=== PATIENT | male | born 1965 | race Caucasian/White ===

== ENCOUNTER 2021-10-04 22:46 | Emergency (ER) | payer BC, SELFPAY ==
--- NOTE | ~2021-10-04 | CT_ITS ---
EXAMINATION: CT brain wo con DATE: 10/04/2021 23:19 INDICATION: Head injury. TECHNIQUE: Computed tomography (CT) of the head was performed without intravenous contrast. The mA wa s adjusted according to patient size. Iterative reconstruction technique was employed. The dose-lengt h product was 605.33 mGy-cm. COMPARISON: None FINDINGS: There is no intracranial hemorrhage, acute infarction, or abnormal intracranial mass lesion . The ventricles are normal in size. The orbits are normal. There is mild mucosal thickening in the p aranasal sinuses. There is a trace right mastoid effusion. IMPRESSION: 1. Normal brain. Reviewed, dictated and finalized at location A. IMPRESSION: 1. Normal brain.
--- NOTE | 2021-10-04 23:04 | ED.FALL ---
HPI - Fall General Chief Complaint: Fall Stated Complaint: head laceration Time Seen by Provider: 10/04/21 22:51 Source: patient Mode of arrival: ambulatory History of Present Illness HPI Narrative: 56-year-old with a history coronary artery disease status post 4 stents 5 years ago complicated by DVT on Eliquis, cardiomyopathy /CHF, status post ICD, colon cancer with colostomy / colon resection 5 years ago, CVA, had a fall at home where he hit the edge of the table. He presents to the ER with -- 2.5 cm laceration over the left forehead. Profuse bleeding from the laceration -- abrasion of his left tibia with a 3 cm hematoma no neck pain. No loss of consciousness. No headache, vomiting of focal neuro deficit. MD complaint: fall Onset (ago): hour(s) ( 1 hour ago) Fall from: standing Fall witnessed: yes, by family Place fall occurred: home Loss of consciousness: none Prolonged down time: no Symptoms prior to fall: none Context: tripped/slipped Location of injury: head and other ( left leg) Associated symptoms (after fall): denies Related Data Home Medications Medication Instructions Recorded Confirmed apixaban 5 mg tablet (Eliquis) 5 mg PO BID 02/19/19 04/19/21 blood sugar diagnostic (Accu-Chek #10 ea 02/19/19 04/19/21 Guide test strips) furosemide 20 mg tablet 20 mg PO DAILY 02/19/19 04/19/21 hydroxyzine HCl 25 mg tablet 25 mg PO QID PRN 02/19/19 04/19/21 metoprolol succinate 100 mg 150 mg PO DAILY 02/19/19 04/19/21 tablet,extended release 24 hr sacubitril 97 mg-valsartan 103 mg 1 tablet PO BID 06/25/19 04/19/21 tablet (Entresto) cephalexin 500 mg capsule 500 mg PO Q12H 04/19/21 04/19/21 cholecalciferol (vitamin D3) 25 50 mcg PO DAILY 04/19/21 04/19/21 mcg (1,000 unit) capsule Allergies Allergy/AdvReac Type Severity Reaction Status Date / Time No Known Allergies Allergy Verified 04/19/21 08:26 Review of Systems Review of Systems: All systems reviewed & are unremarkable except as noted in HPI and below Constitutional: Constitutional: Reports as per HPI and Reports no additional constitutional complaints Eyes: Eyes: Reports as per HPI and Reports no additional eye complaints ENT: Reports system reviewed and no additional complaints, except as documented and Reports as per HPI Cardiovascular: Cardiovascular: Reports as per HPI and Reports no additional cardiovascular complaints Respiratory: Respiratory: Reports as per HPI and Reports no additional respiratory complaints Gastrointestinal: Gastrointestinal: Reports as per HPI and Reports no additional gastrointestinal complaints Genitourinary: Genitourinary: Reports no additional male genitourinary complaints and Reports as per HPI Musculoskeletal: Musculoskeletal: Reports no additional musculoskeletal complaints and Reports as per HPI Integumentary/Breasts: Comments: left forehead laceration. Left shen abrasion Neurologic: Reports system reviewed and no additional complaints, except as documented and Reports as per HPI Psychiatric: Psychiatric: Reports no additional psychiatric complaints and Reports as per HPI Endocrine: Endocrine: Reports no additional endocrine complaints and Reports as per HPI Hematologic/Lymphatic: Hematologic/Lymphatic: Reports no additional hematologic/lymphatic complaints and Reports as per HPI Allergic/Immunologic: Allergic/Immunologic: Reports no additional allergic/immunologic complaints and Reports as per HPI [facility] Past Medical History Medical History Adenocarcinoma of colon 2017 Anxiety CAD in [place] artery Cardiac defibrillator in place 03/2017 Chronic congestive heart failure Depression Dyslipidemia Elevated lipids Essential (primary) hypertension History of colon cancer 2017 History of deep venous thrombosis (DVT) of distal vein of left lower extremity 10/2016 - post partial colectomy for colon cancer History of open sigmoidectomy
[2021-10-04 23:06] VITALS: BP 120/80; PULSE 80; RESP 18; TEMP 36.6; O2SAT 96
[2021-10-05 00:19] VITALS: BP 120/69; PULSE 68; RESP 16; TEMP 36.6; O2SAT 98
[2021-10-05] MEDS: LIDOCAINE HCL 1% LOCAL INJ 10 ML VIAL (00:26)
== END 2021-10-05 00:27 | disposition home or self-care (01) ==
PROVIDERS: Emergency Provider Internal Medicine Critical Care Medicine; PCP Family Medicine
DX: S01.01XA Laceration without foreign body of scalp, initial encounter (principal); S80.812A Abrasion, left lower leg, initial encounter; S09.90XA Unspecified injury of head, initial encounter; W19.XXXA Unspecified fall, initial encounter
CPT/HCPCS: 12011; 70450; 99284

== ENCOUNTER 2021-10-25 09:46 | Outpatient (CLI) | payer BC, SELFPAY ==
[2021-10-25 18:39] LABS: Basophils Percent Auto 0.4 % (0.2-1.2); Eosinophils Absolute Auto 0.1 K/mm3 (0-0.3); Eosinophils Percent Auto 1.6 % (0-4.4); Hematocrit 46.1 % (42.0-52.0); Hemoglobin 14.9 g/dL (14.0-18.0); Immature Granulocyte Absolute 0.01 K/mm3 (0.00-0.031); Immature Granulocyte Percent A 0.1 % (0-0.5); Lymphocytes Percent Auto 17.7 % (18.3-44.2); Mean Corpuscular HGB Conc 32.3 g/dl (32-36); Mean Corpuscular Hemoglobin 31.4 pg (26-34); Mean Corpuscular Volume 97.1 fl (80-100); Mean Platelet Volume 9.3 fl (7.4-10.4); Monocytes Absolute Auto 0.6 K/mm3 (0.1-0.6); Monocytes Percent Auto 7.6 % (2.6-8.5); Neutrophils Absolute Auto 5.3 K/mm3 (1.3-6.7); Neutrophils Percent Auto 72.6 % (45.5-73.1); Platelet Count Result 295 k/mm3 (150-375); Red Blood Count 4.75 M/mm3 (4.6-6.20); Red Cell Distribution Width 12.5 % (11.5-14.5); White Blood Count 7.3 K/mm3 (4.5-10.0)
[2021-10-25 19:13] LABS: Alanine Aminotransferase 19 U/L (6-50); Albumin Level 4.1 g/dL (3.5-5.1); Alkaline Phosphatase 87 U/L (38-126); Anion Gap 7 mmol/L (8-16); Aspartate Amino Transferase 54 U/L (17-59); Bilirubin,Total 0.3 mg/dL (0.2-1.3); Blood Urea Nitrogen 17 mg/dL (9-20); Calcium 9.2 mg/dL (8.4-10.2); Carbon Dioxide 28 mmol/L (22-30); Chloride 103 mmol/L (98-107); Cholesterol 105 mg/dL (0-200); Estimated Glomerular Filt Rate > 60; Glucose 168 mg/dL (65-110); HDL Direct 32 mg/dL; Potassium 4.1 mmol/L (3.4-5.0); Sodium 138 mmol/L (137-145); Triglycerides 83 mg/dL (<150)
[2021-10-25 19:19] LABS: Creatinine Urine 110.3 mg/dL
[2021-10-25 19:25] LABS: LDL Cholesterol Direct 52 mg/dL
[2021-10-25 19:30] LABS: MALB Creatinine Ratio 17.6 mg/g (0-30); Microalbumin Urine Random 19.4 mg/L (0-16.7)
[2021-10-25 19:39] LABS: Prostate Specific Antigen 0.5 ng/mL (< OR = 4.0)
[2021-10-25 19:58] LABS: Hemoglobin A1C 6.8 % (<5.7)
[2021-10-25 20:22] LABS: Vitamin D 25 Hydroxy 61.8 ng/mL
== END 2021-10-25 09:47 | disposition home or self-care (01) ==
LOC: ANHGOSHLAB 09:48
PROVIDERS: PCP Family Medicine; Visit Provider Family Medicine
DX: Z00.00 Encounter for general adult medical examination without abnormal findings (principal); E11.9 Type 2 diabetes mellitus without complications; Z12.5 Encounter for screening for malignant neoplasm of prostate; E53.8 Deficiency of other specified B group vitamins; E78.5 Hyperlipidemia, unspecified; I10 Essential (primary) hypertension; F32.9 Major depressive disorder, single episode, unspecified; I50.9 Heart failure, unspecified; F41.9 Anxiety disorder, unspecified; E55.9 Vitamin D deficiency, unspecified
CPT/HCPCS: 36415; 80053; 80061; 82043; 82306; 82607; 83036; 84153; 84443; 85025; G0103

== ENCOUNTER 2022-04-26 09:36 | Outpatient (CLI) | payer BC, SELFPAY ==
[2022-04-26 20:22] LABS: Alanine Aminotransferase 21 U/L (6-50); Albumin Level 4.3 g/dL (3.5-5.1); Alkaline Phosphatase 91 U/L (38-126); Anion Gap 6 mmol/L (8-16); Aspartate Amino Transferase 64 U/L (17-59); Bilirubin,Total 0.5 mg/dL (0.2-1.3); Blood Urea Nitrogen 22 mg/dL (9-20); Calcium 9.2 mg/dL (8.4-10.2); Carbon Dioxide 31 mmol/L (22-30); Chloride 102 mmol/L (98-107); Estimated Glomerular Filt Rate > 60; Glucose 151 mg/dL (65-110); Potassium 4.5 mmol/L (3.4-5.0); Sodium 139 mmol/L (137-145)
[2022-04-26 20:49] LABS: Hemoglobin A1C 7.2 % (<5.7)
== END 2022-04-26 09:37 | disposition home or self-care (01) ==
LOC: ANHGOSHLAB 09:37
PROVIDERS: PCP Family Medicine; Visit Provider Family Medicine
DX: E11.9 Type 2 diabetes mellitus without complications (principal); E78.5 Hyperlipidemia, unspecified; F32.9 Major depressive disorder, single episode, unspecified; I10 Essential (primary) hypertension; I50.9 Heart failure, unspecified
CPT/HCPCS: 36415; 80053; 83036

== ENCOUNTER 2022-11-01 09:07 | Outpatient (CLI) | payer BC, SELFPAY ==
[2022-11-01 11:41] LABS: Alanine Aminotransferase 18 U/L (6-50); Alkaline Phosphatase 69 U/L (38-126); Anion Gap 3 mmol/L (8-16); Aspartate Amino Transferase 63 U/L (17-59); Bilirubin,Total 0.6 mg/dL (0.2-1.3); Blood Urea Nitrogen 26 mg/dL (9-20); Calcium 9.2 mg/dL (8.4-10.2); Carbon Dioxide 33 mmol/L (22-30); Chloride 101 mmol/L (98-107); Cholesterol 104 mg/dL (0-200); Estimated Glomerular Filt Rate > 60; Glucose 145 mg/dL (65-110); HDL Direct 30 mg/dL; Magnesium 1.9 mg/dL (1.6-2.3); Potassium 4.8 mmol/L (3.4-5.0); Sodium 137 mmol/L (137-145); Triglycerides 91 mg/dL (<150)
[2022-11-01 11:43] LABS: Basophils Percent Auto 0.6 % (0.2-1.2); Eosinophils Absolute Auto 0.1 K/mm3 (0-0.3); Immature Granulocyte Absolute 0.02 K/mm3 (0.00-0.031); Immature Granulocyte Percent A 0.3 % (0-0.5); Lymphocytes Absolute Auto 1.51 K/mm3 (0.9-3.2); Lymphocytes Percent Auto 22.1 % (18.3-44.2); Mean Corpuscular HGB Conc 32.6 g/dl (32-36); Mean Corpuscular Hemoglobin 31.9 pg (26-34); Mean Corpuscular Volume 97.9 fl (80-100); Mean Platelet Volume 9.5 fl (7.4-10.4); Monocytes Absolute Auto 0.5 K/mm3 (0.1-0.6); Monocytes Percent Auto 7.9 % (2.6-8.5); Neutrophils Absolute Auto 4.6 K/mm3 (1.3-6.7); Neutrophils Percent Auto 67.1 % (45.5-73.1); Platelet Count Result 278 k/mm3 (150-375); Red Cell Distribution Width 12.3 % (11.5-14.5); White Blood Count 6.8 K/mm3 (4.5-10.0)
[2022-11-01 11:52] LABS: LDL Cholesterol Direct 56 mg/dL
[2022-11-01 12:26] LABS: Creatinine Urine 134.2 mg/dL
[2022-11-01 12:28] LABS: MALB Creatinine Ratio 5.9 mg/g (0-30); Microalbumin Urine Random 7.9 mg/L (0-16.7)
[2022-11-01 13:21] LABS: Hemoglobin A1C 6.7 % (<5.7)
[2022-11-01 13:28] LABS: Vitamin D 25 Hydroxy 65.8 ng/mL
[2022-11-01 17:36] LABS: Prostate Specific Antigen 0.4 ng/mL (< OR = 4.0)
== END 2022-11-01 09:08 | disposition home or self-care (01) ==
LOC: ANHGOSHLAB 09:10
PROVIDERS: PCP Family Medicine; Visit Provider Family Medicine
DX: Z00.00 Encounter for general adult medical examination without abnormal findings (principal); E53.8 Deficiency of other specified B group vitamins; I50.9 Heart failure, unspecified; I10 Essential (primary) hypertension; E11.9 Type 2 diabetes mellitus without complications; E78.5 Hyperlipidemia, unspecified; Z12.5 Encounter for screening for malignant neoplasm of prostate; G25.81 Restless legs syndrome; E55.9 Vitamin D deficiency, unspecified
CPT/HCPCS: 36415; 80053; 80061; 82043; 82306; 82607; 83036; 83735; 84153; 84443; 85025; G0103

== ENCOUNTER 2023-05-07 12:57 | Outpatient (CLI) | payer BC, SELFPAY ==
[2023-05-07 14:03] LABS: Alanine Aminotransferase 13 U/L (6-50); Alkaline Phosphatase 72 U/L (38-126); Anion Gap 4 mmol/L (8-16); Aspartate Amino Transferase 21 U/L (17-59); Bilirubin,Total 0.5 mg/dL (0.2-1.3); Blood Urea Nitrogen 21 mg/dL (9-20); Calcium 9.3 mg/dL (8.4-10.2); Carbon Dioxide 31 mmol/L (22-30); Chloride 102 mmol/L (98-107); Estimated Glomerular Filt Rate > 60; Glucose 131 mg/dL (65-110); Potassium 4.1 mmol/L (3.4-5.0); Sodium 137 mmol/L (137-145)
[2023-05-07 22:35] LABS: Hemoglobin A1C 7.5 % (<5.7)
== END 2023-05-07 12:58 | disposition home or self-care (01) ==
LOC: ANHLAB 12:59
PROVIDERS: PCP Family Medicine; Visit Provider Family Medicine
DX: E11.9 Type 2 diabetes mellitus without complications (principal); I10 Essential (primary) hypertension
CPT/HCPCS: 36415; 80053; 83036

== ENCOUNTER 2023-11-14 09:29 | Outpatient (CLI) | payer BC, SELFPAY ==
[2023-11-14 19:01] LABS: Basophils Absolute Auto 0.1 K/mm3 (0.0-0.1); Basophils Percent Auto 0.7 % (0.2-1.2); Eosinophils Absolute Auto 0.2 K/mm3 (0-0.3); Eosinophils Percent Auto 1.7 % (0-4.4); Hematocrit 46.2 % (42.0-52.0); Hemoglobin 15.5 g/dL (14.0-18.0); Immature Granulocyte Absolute 0.02 K/mm3 (0.00-0.031); Immature Granulocyte Percent A 0.2 % (0-0.5); Lymphocytes Absolute Auto 1.51 K/mm3 (0.9-3.2); Lymphocytes Percent Auto 17.2 % (18.3-44.2); Mean Corpuscular HGB Conc 33.5 g/dl (32-36); Mean Corpuscular Hemoglobin 32.8 pg (26-34); Mean Corpuscular Volume 97.7 fl (80-100); Mean Platelet Volume 9.5 fl (7.4-10.4); Monocytes Absolute Auto 0.7 K/mm3 (0.1-0.6); Monocytes Percent Auto 7.9 % (2.6-8.5); Neutrophils Absolute Auto 6.4 K/mm3 (1.3-6.7); Neutrophils Percent Auto 72.3 % (45.5-73.1); Platelet Count Result 284 k/mm3 (150-375); Red Blood Count 4.73 M/mm3 (4.6-6.20); Red Cell Distribution Width 12.4 % (11.5-14.5); White Blood Count 8.8 K/mm3 (4.5-10.0)
[2023-11-14 19:41] LABS: Microalbumin Urine Random 6.5 mg/L (0-16.7)
[2023-11-14 19:42] LABS: Alanine Aminotransferase 15 U/L (6-50); Albumin Level 4.2 g/dL (3.5-5.1); Alkaline Phosphatase 68 U/L (38-126); Anion Gap 8 mmol/L (4-12); Aspartate Amino Transferase 44 U/L (17-59); Bilirubin,Total 0.6 mg/dL (0.2-1.3); Blood Urea Nitrogen 19 mg/dL (9-20); Calcium 9.3 mg/dL (8.4-10.2); Carbon Dioxide 30 mmol/L (22-30); Chloride 99 mmol/L (98-107); Cholesterol 101 mg/dL (0-200); Estimated Glomerular Filt Rate > 60; Glucose 148 mg/dL (65-110); HDL Direct 32 mg/dL; Potassium 4.1 mmol/L (3.4-5.0); Sodium 137 mmol/L (137-145); Triglycerides 94 mg/dL (<150)
[2023-11-14 19:53] LABS: LDL Cholesterol Direct 42 mg/dL
[2023-11-14 20:10] LABS: Prostate Specific Antigen 0.5 ng/mL (< OR = 4.0)
[2023-11-14 21:00] LABS: Hemoglobin A1C 7.1 % (<5.7)
[2023-11-14 21:19] LABS: Vitamin D 25 Hydroxy 64.4 ng/mL
== END 2023-11-14 09:30 | disposition home or self-care (01) ==
LOC: ANHGOSHLAB 09:30
PROVIDERS: PCP Family Medicine; Visit Provider Family Medicine
DX: Z00.00 Encounter for general adult medical examination without abnormal findings (principal); I10 Essential (primary) hypertension; E78.5 Hyperlipidemia, unspecified; E11.9 Type 2 diabetes mellitus without complications; E55.9 Vitamin D deficiency, unspecified; F32.9 Major depressive disorder, single episode, unspecified; F41.9 Anxiety disorder, unspecified; E53.8 Deficiency of other specified B group vitamins; G25.81 Restless legs syndrome; Z12.5 Encounter for screening for malignant neoplasm of prostate
CPT/HCPCS: 36415; 80053; 80061; 82043; 82306; 82607; 82728; 83036; 84153; 84443; 85025; G0103

== ENCOUNTER 2024-05-15 09:05 | Outpatient (CLI) | payer BC, SELFPAY ==
--- OUTSIDE RECORDS SUMMARY | 2024-05-15 09:19 | XMS_ITS | Encounter Summary ---
Author Organization [facility] Address [address] [place] [address] Phone Care Team Providers Care Piece Work Checker Name Role Phone Jerri Velez MD Primary Care Provider Be Soler MD Primary Care Provider + [phone] Jerri Velez MD Primary Care Provider Be Soler MD Primary Care Provider + [phone] Jerri Velez MD Primary Care Provider Carloz Ace MD Unavailable [phone] Jonathan Rosario MD Unavailable [phone] Catalina Tan MD PhD Unavailable [phone] Derek Mora MD Unavailable [phone] Be Soler MD Primary Care Provider + [phone] Jerri Velez MD Primary Care Provider Fanta Chauhan RN Unavailable [phone] Jerri Velez MD Unavailable + [phone] Renetta Duenas RN Unavailable [phone] Jerri Velez MD Primary Care Provider Encounter Details Date Type Department Care Team (Late st Contact Info) Description 04/04/2017 Orders Only [facility] Provider, MD Antonio [address] [place] [id number] Social History Tobacco Use Types Packs/Day Years Used Date Smoking Tobacco: Never Assessed Sex and Gender Information Value Date Recorded Sex Assigned at Not on file Legal Sex Male 6:37 PM CDT Gender Identity Not on file Sexual Orientation Not on file documented as of this encounter Plan of Treatment Not on file documented as of this encounter Procedures Procedure Name Priority Date/Time Associated Diagnosis Comments CARDIOLOGY REPORT 04/04/2017 documented in this encounter Results * CARDIOLOGY REPORT (04/04/2017) Anatomical Region Laterality Modality Other Narrative 04/04/2017 Ordered by an unspecified provider. Historical Provider [facility] ALEJANDRO TOBAR Final Result documented in this encounter Visit Diagnoses Not on filedocumented in this encounter Care Teams Piece Work Checker Relationship Specialty Start Date End Date Jerri Velez MD PCP - General 04/04/17 06/08/17 [place] [address] PCP - General 06/09/17 06/12/17 Jerri Velez MD PCP - General 06/13/17 06/19/17 Be Soler MD [address] [place] [address] PCP - General 06/20/17 07/11/17 Jerri Velez MD PCP - General 07/12/17 08/09/17 [place] [address] PCP - General 08/10/17 10/16/17 Jerri Velez MD PCP - General Family Practice 10/17/17 05/29/23 Jerri Velez MD [address] [place] [address] PCP - [facility] Family Practice 05/30/23 Carloz Ace MD [address] [facility] [address] [place] [address] Medical Oncologist/Hematologis t Medical Oncology 08/09/17 Jonathan Rosario MD [address] [facility] [address] [place] [address] Referring Physician Colon and Rectal Surgery 08/09/17 Catalina Tan MD PhD [address] [facility] [address] [place] [address] Surgeon Transplant 08/09/17 Derek Mora MD [address] [facility] [address] [place] [address] Consulting Physician Transplant 08/09/17 Fanta Chauhan, RN [address] [facility] [address] [place] [address] Heart Failure Coordinator Neonatal Doctor 10/31/17 Jerri Velez MD Referring Physician Family Practice 12/18/18 Renetta Duenas, RN Registered Nurse Neonatal Doctor 08/07/19 documented as of this encounter
--- OUTSIDE RECORDS SUMMARY | 2024-05-15 09:19 | XMS_ITS | Encounter Summary ---
Author Organization [facility] Address [address] [place] [address] Care Team Providers Care Documentation Lead Name Role Phone Carloz Ace MD Unavailable [phone] Jonathan Rosario MD Unavailable [phone] Catalina Tan MD PhD Unavailable [phone] Derek Mora MD Unavailable [phone] Jerri Velez MD Primary Care Provider Fanta Chauhan RN Unavailable [phone] Jerri Velez MD Unavailable [phone] Renetta Duenas RN Unavailable [phone] Jerri Velez MD Primary Care Provider Encounter Details Date Type Department Care Team (Late st Contact Info) Description 08/16/2021 Telephone [facility] Transplant Heart [address] [facility] [address] [phone] [place] [address] Milli Fang Social History Tobacco Use Types Packs/Day Years Used Date Smoking Tobacco: Never Smokeless Tobacco: Current Chew Alcohol Use Standard Drinks/Week Comments No 0 (1 standard drink = 0.6 oz pur e alcohol) AUDIT-C Answer Date Recorded Q1: How often do you have a drink containing alc ohol? Never 05/10/2021 Average Number of Drinks Not on file 022 Frequency of Binge Drinking Not on file 04/13 Sex and Gender Information Value Date Recorded Sex Assigned at Not on file Legal Sex Male 6:37 PM CDT Gender Identity Not on file Sexual Orientation Not on file documented as of this encounter Plan of Treatment Not on file documented as of this encounter Visit Diagnoses Not on filedocumented in this encounter Care Teams Documentation Lead Relationship Specialty Start Date End Date Jerri Velez MD [address] [address] PCP - General Family Practice 10/17/17 05/29/23 Jerri Velez MD [address] [place] [address] PCP - General Family Practice 05/30/23 [place] [address] [place] [address] Medical Oncologist/Textile Pin Worker Medical Oncology 08/09/17 Jonathan Rosario MD [address] [address] Referring Physician Colon and Rectal Surgery 08/09/17 Catalina Tan [place] PhD [address] [place] [address] Surgeon Transplant 08/09/17 Derek Mora MD [address] [place] [address] Consulting Physician Transplant 08/09/17 Fanta Chauhan RN [address] [facility] [address] [place] [address] Heart Failure Coordinator Airline Reservationist 10/31/17 Jerri Velez MD [address] [facility] [address] [place] [address] Referring Physician Family Practice 12/18/18 Renetta Duenas, RN Registered Nurse Airline Reservationist 08/07/19 documented as of this encounter
--- OUTSIDE RECORDS SUMMARY | 2024-05-15 09:19 | XMS_ITS | Clinical Summary ---
Author Organization [facility] Address [id number] [place] [address] Care Team Providers Care Soda Drier Feeder Name Role Phone Unavailable Primary Care Provider Unavailabl e Social History Tobacco Use Types Packs/Day Years Used Date Smoking Tobacco: Never Assessed Sex and Gender Information Value Date Recorded Sex Assigned at Not on file Legal Sex Male 7:31 AM CDT Gender Identity Not on file Sexual Orientation Not on file Plan of Treatment Health Maintenance Due Date Last Done Comments Colorectal Cancer Screening Colonoscopy (10 Years) 1963 Annual Physical 07/05/1966 Hepatitis C 07/05/1981 DTaP, Tdap and Td Vaccines ( 1 - Tdap) 07/05/1982 Zoster Vaccines (1 of 2) 07/05/2013 COVID-19 Vaccine (2023-2 5 season) 2023 Influenza Adult (#1) 2023 RSV Immunization or 60+ Years (1 - 1-dose 75+ series) 07/05/2038 Meningococcal B Vaccine Aged Out No l onger eligible based on patient's age to complete this topic Meningococcal Vaccine Aged Out No pretty bud eligible based on patient's age to complete this topic Pneumococcal Vaccine: Pediat rics (0 to 5 Years) and At-Risk Patients (6 to 64 Years) Aged Out No longer eligible b ased on patient's age to complete this topic RSV Immunizations Under 20 Months Aged Out No longer eligible based on patient's age to complete this topic Insurance [place] [employer]
--- OUTSIDE RECORDS SUMMARY | 2024-05-15 09:19 | XMS_ITS | Clinical Summary ---
Author Organization [facility] Address [address] [place] [id number] Care Team Providers Care Oyster Culturist Name Role Phone Carloz Ace MD Unavailable Jonathan Rosario MD Unavailable [phone] Catalina Tan MD PhD Unavailable [phone] Derek Mora MD Unavailable [phone] Fanta Chauhan RN Unavailable Jerri Velez MD Unavailable Renetta Duenas RN Unavailable Jerri Velez MD Primary Care Provider Allergies No known active allergies Medications spironolactone (ALDACTONE) 25 mg tablet daily. 12/05/19 17 Active atorvastatin (LIPITOR) 80 mg tablet TAKE 1 TABLET AT BEDTIME. Active hydrOXYzine (ATARAX) 25 mg tablet TAKE 1 TABLET 4 TIMES DAILY NEEDED. Active dapagliflozin (FARXIGA) 10 mg tablet 1 tablet (10 mg total) daily Active cyanocobalamin -salcaprozat sod 1,000-100 mcg-mg tablet Take by mouth Ac tive glipiZIDE XL (GLUCOTROL XL) 10 mg 24 hr tablet Take 1 tablet (10 mg total) by mouth daily 2 tablets 07/27/19 23 Active metFORMIN XR (GLUCOPHAGE XR) 500 mg 24 hr tablet Take 4 tablets (2,000 mg total) by mouth daily with breakfast 08/03/19 23 Active rOPINIRole (REQUIP) 2 mg tablet Take 1 tablet (2 mg total) by mouth nightly 08/17/19 23 Active Ozempic 1 mg/dose (4 mg/3 mL) pen injector injection Inject 1 mg under the skin once a week 08/03/19 23 Active sod sulf-pot chloride-mag sulf 1.479-0.188- 0.225 gram tablet Please follow the instructions provided by your [facility] GI office. For any questions call [phone]. 24 tablet 03/27/19 24 Active Entresto 97-103 mg tablet TAKE ONE TABLET BY MOUTH TWICE A DAY 60 tablet 11 04/18/19 24 Active clopidogreL (PLAVIX) 75 mg tablet TAKE ONE TABLET BY MOUTH DAILY 90 tablet 3 05/30/19 24 Active sertraline (ZOLOFT) 25 mg tablet Take 1 tablet (25 mg total) by mouth daily 07/31/19 24 Active furosemide (LASIX) 20 mg tablet TAKE ONE TABLET BY MOUTH DAILY 90 tablet 3 02/20/19 25 Active Eliquis 5 mg tablet TAKE ONE TABLET BY MOUTH TWICE A DAY 60 tablet 11 03/19/19 25 Active sotaloL (BETAPACE) 120 mg tablet TAKE ONE TABLET BY MOUTH TWICE A DAY 180 tablet 04/06/19 25 Active metoprolol XL (TOPROL-XL) 100 mg 24 hr tablet TAKE ONE AND A HALF TABLETS BY MOUTH DAILY 135 tablet 3 05/02/19 25 Active metoprolol XL (TOPROL-XL) 100 mg 24 hr tablet TAKE ONE AND A HALF TABLETS BY MOUTH DAILY 135 tablet 3 05/08/19 24 025 Discontinued Active Problems Problem Noted Date Diagnosed Date Encounter for colonoscopy du e to history of adenomatous colonic polyps 03/27/2023 VT (ventricular tachycardia) 11/28/2021 Assessment & Plan (12/01/2021 10:28 AM CDT): History of ischemic cardiomyopathy s/p medtronic FINANCE ASSOCIATE-D implanted initially for primary prevention therapy. He has subsequently had two appropriate shocks for VT/VF, first in 2018 and most recently again in February of this year. He was seen in follow up with EP November 22 2021 and given recurrent ICD shocks was recommended elective admission for sotalol load. -Sotalol 80mg BID started on evening of 11/28, increased to 120mg BID on evening of11/29 -pt tolerating sotalol well and 6th dose will be this am -anticipate d/c home if QT remains stable post dose -Continuous uninterrupted telemetry monitoring while in house -follow-up in EP clinic in one month post discharge Assessment & Plan (11/30/2021 12:53 PM CDT): History of ischemic cardiomyopathy s/p medtronic FINANCE ASSOCIATE-D implanted initially for primary prevention therapy. He has subsequently had two appropriate shocks for VT/VF, first in 2019 and most recently again in February of this year. He was seen in follow up with EP November 22 2021 and given recurrent ICD shocks was recommended elective admission for sotalol load. -Sotalol 80mg BID started on evening of 11/28, increased to 120mg BID on evening of11/29-patient tolerating and EKG remains stable -Check EKG 2 hours following each dose of sotalol to monitor QTc interval -Continuous uninterrupted telemetry monitoring Assessment & Plan (11/29/2021 11:18 AM CDT): History of ischemic cardiomyopathy s/p medtronic FINANCE ASSOCIATE-D implanted initially for primary prevention therapy. He has subsequently had two appropriate shocks for VT/VF, first in 2019 and most recently again in February of this year. He was seen in follow up with EP November 22 2021 and given recurrent ICD shocks was recommended elective admission for sotalol load. - Increase sotalol to 120mg BID with tonights dose - Continuous telemetry monitoring - EKGs following sotalol dose; EKG today paced QTc 476 VF (ventricular fibrillation) 02/20/2019 Chronic systolic (congestive) heart failure 06/2018 Type 2 diabetes mellitus wit hout complication, without long-term current use of insulin 03/05/2018 Essential hypertension 03/05/2018 Hemiparesis due to old stroke 03/05/2018 CAD (coronary artery disease) 12/05/2017 Overview (12/05/2017): Cardiac catheterization at [facility] in [place] showed an 80% distal left main coronary stenosis; 100% chronic total occlusion of the LAD after the first diagonal; and occluded second diagonal, filling retrograde; 80% to 90% distal left circumflex coronary disease; 50% disease at the RCA. SPECT myocardial viability scan 10/21/2016 showed a small apical LV infarct with all other left ventricular myocardial segments showing normal myocardium. Status post PCI 11/06/[address] Echols with Impella assistance; angioplasty of the distal left circumflex coronary artery with placement of a 2.75 x 38 mm Synergy drug-eluting stent, PCI to the LAD with a 2.25 x 38 mm overlapping with 3.0 x 32 mm Synergy drug-eluting stents, and 4.0 mm x 12 mm Synergy drug-eluting stent placed to the left main coronary artery Assessment & Plan (11/30/2021 12:55 PM CDT): History of complex PCI in 2016 with successful percutaneous coronary intervention of distal circumflex, chronic total occlusion of left anterior descending, and distal left main -Continue home plavix, atorvastatin, metoprolol Assessment & Plan (11/29/2021 11:19 AM CDT): History of complex PCI in 2016 with successful percutaneous coronary intervention of distal circumflex, chronic total occlusion of left anterior descending, and distal left main - Continue home plavix, atorvastatin 80mg, metoprolol Cardiomyopathy, ischemic 12/05/2017 Overview (09/02/2022): TTE before hospital discharge on 11/14/2016 showed an LVEF of 16%. TTE 02/2017 = 20% S/p CRTD 03/2017 TTE June 13 LVEF 30% with large apical akinetic segmen TTE July 2019 LVEF ~ 30% with apical akinesis - foreshortened images on 2D TTE July 2020 LVEF 30%, LVIDD 5.4 cm TTE August 2022 LVEF 25-30%, LVIDD 6 cm Assessment & Plan (12/01/2021 10:29 AM CDT): Chronic systolic/diastolic HFrEF. History of cardiogenic shock and impella assisted angioplasty of the distal left circumflex, LAD, and LM. LVEF as low as 16% in past, now with recovery to LVEF 30% on most recent echo from 2020. Follows with Dr. Mora. -Continue home GDMT including: high dose entresto, metoprolol 150 XL, farxiga 10mg, and spironolactone 25 daily -Currently euvolemic on exam and well compensated -Accurate I&O, monitor on telemetry, daily standing weights Assessment & Plan (11/30/2021 12:55 PM CDT): Chronic systolic/diastolic HFrEF. History of cardiogenic shock and impella assisted angioplasty of the distal left circumflex, LAD, and LM. LVEF as low as 16% in past, now with recovery to LVEF 30% on most recent echo from 2020. Follows with Dr. Mora. -Continue home GDMT including: high dose entresto, metoprolol 150 XL, farxiga 10mg, and spironolactone 25 daily -Currently euvolemic on exam and well compensated -Accurate I&O, monitor on telemetry, daily standing weights Assessment & Plan (11/29/2021 9:16 AM CDT): Chronic systolic/diastolic HFrEF. History of cardiogenic shock and impella assisted angioplasty of the distal left circumflex, LAD, and LM. LVEF as low as 16% in past, now with recovery to LVEF 30% on most recent echo from 2020. Follows with Dr. Mora. - Continue home GDMT including high dose entresto, metoprolol 150 XL, farxiga 10mg, and spironolactone 25 daily - Currently euvolemic and well compensated - Accurate I&O, monitor on telemetry, daily weights Ischemic stroke ([facility]) 12/05/2017 Overview (12/05/2017): Ischemic stroke with right eye gaze palsy and left upper and lower extremity weakness with MRI showing [id number] infarcts within the right cerebral peduncle and left occipital subcortical white matter and a punctate microhemorrhage in the right side of the body of the corpus callosum. Assessment & Plan (12/01/2021 10:29 AM CDT): History of ischemic stroke in 2018, currently without residual deficits Assessment & Plan (11/30/2021 12:54 PM CDT): History of ischemic stroke in 2018, currently without residual deficits Assessment & Plan (11/28/2021 8:54 PM CDT): History of ischemic stroke in 2018, currently without residual deficits DVT (deep venous thrombosis) ([facility]) 8 Overview (12/05/2017): -Deep venous thrombosis of the left lower extremity, showing acute DVT in the left common femoral, posterior tibial, and soleal veins on 11/29/2016. -received an IVC filter on 12/01/2016 followed by apixaban, with subsequent IVC filter removal. Assessment & Plan (12/01/2021 10:27 AM CDT): Deep venous thrombosis of the left lower extremity, showing acute DVT in the left common femoral, posterior tibial, and soleal veins on 11/29/2016. -Received an IVC filter on 12/01/2016 followed by Eliquis, with subsequent IVC filter removal -Continue Eliquis 5mg BID Assessment & Plan (11/30/2021 12:54 PM CDT): Deep venous thrombosis of the left lower extremity, showing acute DVT in the left common femoral, posterior tibial, and soleal veins on 11/29/2016. -Received an IVC filter on 12/01/2016 followed by Eliquis, with subsequent IVC filter removal -Continue Eliquis 5mg BID Assessment & Plan (11/29/2021 9:14 AM CDT): Deep venous thrombosis of the left lower extremity, showing acute DVT in the left common femoral, posterior tibial, and soleal veins on 11/29/2016. - Received an IVC filter on 12/01/2016 followed by apixaban, with subsequent IVC filter removal - Continue eliquis Cardiac resynchronization th erapy defibrillator (FINANCE ASSOCIATE-D) in place 12/05/2017 Overview (12/05/2017): Status post FINANCE ASSOCIATE-D implanted 04/03/[address] Nitin Fabian. Device is a Medtronic Amplia MRI compatible device. Malignant neoplasm of sigmoid colon (CMS/HCC) Cancer Staging:Pathologic stage from 10/31/2016:Stage IIA(pT3, pN0, cM0) - Signed by Ciara Gonzalez NP on 07/03/2023 Overview (12/05/2017): Came to clinical attention with hematochezia in the setting of therapeutic anticoagulation. Underwent sigmoid colon resection with end-colostomy, with an exploratory laparotomy on 10/31/[address] Rosario Pathology shows moderately to poorly differentiated adenocarcinoma with a tumor 2.3 cm in greatest dimension, invading through the muscularis propria with no lymphovascular or perineural invasion, and proximal and distal resection margins with no evidence of malignancy and 0 of 13 lymph nodes with metastasis, thus, T3N0M0, stage IIA colon cancer. - Followed by oncology, and currently undergoing surveillance given multiple comorbidities and stage II status. - Scan on 08/10/2017 was without evidence of disease recurrence. He is due for a colonoscopy on 10/2017. Assessment & Plan (12/01/2021 10:27 AM CDT): -Followed by oncology, and currently undergoing surveillance given multiple comorbidities and stage II status Assessment & Plan (11/30/2021 12:54 PM CDT): -Followed by oncology, and currently undergoing surveillance given multiple comorbidities and stage II status Assessment & Plan (11/28/2021 8:54 PM CDT): - Followed by oncology, and currently undergoing surveillance given multiple comorbidities and stage II status. Resolved Problems Problem Noted Date Diagnosed Date Resolved Date KRISTA (acute kidney injury) 12/05/2017 Overview (12/05/2017): Initial creatinine on transfer to [facility] was 1.66; this jerome to a peak of 3.09 and ultimately normalized Encounters Date Type Department Care Team Description 04/10/2024 8:00 AM OIL WELL DRILLING MANAGER Ancillary Procedure [facility] [address] [address] Cardiomyopathy, ischemic 03/11/2024 Orders Only [facility] [address] [facility] [address] [place] [phone] Johnathon Fabian MD PhD 03/06/2024 8:00 AM OIL WELL DRILLING MANAGER Ancillary Procedure [facility] [address] [place] [address] Cardiomyopathy, ischemic from Last 3 Months Immunizations Immunization Administration Dates Next Due Hep A, Adult 10/14/1999,03/08/1999 Influenza, Quadrivalent, Aria l Culture-based MDCK, Preservative Free, Antibiotic Free, Intramuscular 12/18/2018 Influenza, Quadrivalent, Spl it, Preservative Free, Intramuscular 12/01/2021 Influenza, Unspecified 10/13/2016 Td, adsorbed 03/08/1999 Tdap 04/05/2010 Surgical History Surgery Date Site/Laterality Comments OTHER SURGICAL HISTORY 11/13/2016 1. Open repair of the left axillary artery. 2. Removal of intra-aortic balloon pump from the left axillary artery. OTHER SURGICAL HISTORY 11/09/2016 1. Impella interrogation. 2. Impella explant. 3. Closure of the axillary wound. 4. Insertion of left axillary 40 mL intra-aortic balloon pump through 8- Pashto sheath. 5. Use of fluoroscopy for intra-aortic balloon pump insertion. 6. CALEB guidance and repositioning of intra-aortic balloon pump and repositioning of balloon pump. OTHER SURGICAL HISTORY 10/17/2016 1. Removal of the left femoral Impella CP. 2. Extensive repair of the left femoral artery. 3. New implant of the Impella 5 through the right axillary artery, 8 mm Dacron graft sewn to the axillary artery in end-to-side fashion. 4. Initial interrogation of the Impella 5 through the right axillary arterial graft. 5. Transesophageal echocardiogram. CORONARY ANGIOPLASTY WITH STENT PLACEMENT 02/13/2016 - 02/11/2017 x4 EXPLORATORY LAPAROTOMY 10/31/2016 sigmoid resection with end colostomy, transesophageal echo COLONOSCOPY Medical History Medical History Date Comments Colorectal cancer (HCC) 10/20/2016 Heart attack (HCC) 10/17/2016 cardiogenic s hock Diabetes (HCC) 1996 Stroke (cerebrum) (HCC) 11/05/2016 CHF (congestive heart failure) (HCC) 03/2017 s/p biventricular Medtronic Quad FINANCE ASSOCIATE-D DVT (deep venous thrombosis) (HCC) 11/2016 s/p IVC filter Type 2 diabetes mellitus (HCC) Colon polyp Pacemaker 2017 Family History Medical History Relation Name Comments Colon cancer Maternal Grandfather Colon cancer Mother Family history of colon cancer - (Added by TW Conv)/Family history of colon cancer - (Added by TW Conv) Hypertension Mother Family history of hypertension - (Added by TW Conv)/Family history of hypertension - (Added by TW Conv)/Family history of hypertension - (Added by TW Conv) Relation Name Status Comments Maternal Grandfather Mother Social History Tobacco Use Types Packs/Day Years Used Date Smoking Tobacco: Never Smokeless Tobacco: Current Chew Tobacco Cessation:Ready to Q uit: Not Asked; Counseling Given: Not Answered Alcohol Use Standard Drinks/Week Comments No 0 (1 standard drink = 0.6 oz pur e alcohol) AUDIT-C Answer Date Recorded Q1: How often do you have a drink containing alcohol? Never 04/12/2023 Q2: How many drinks containi ng alcohol do you have on a typical day when you are drinking? Patient does not drink Q3: How often do you have si x or more drinks on one occasion? Never 04/12/2023 Personal Safety Answer Date Recorded Have you ever been in or are you currently in a harmful physical or emotional relationship or is someone making you feel afraid or unsafe? Denies 04/12/2023 Sex and Gender Information Value Date Recorded Sex Assigned at Not on file Legal Sex Male 6:37 PM CDT Gender Identity Not on file Sexual Orientation Not on file Obstetrics History Last Filed Vital Signs Vital Sign Reading Time Taken Comments Blood Pressure 117/71 11/27/2023 10:18 AM CDT Pulse 73 11/27/2023 10:18 AM CDT Temperature 36.5 C (97.7 F) 07/16/2023 9:30 AM CDT Respiratory Rate 20 07/16/2023 9:30 AM CDT Oxygen Saturation 99% 11/27/2023 10:18 AM CDT Inhaled Oxygen Concentration - - Weight 84.8 kg (187 lb) 11/27/2023 10:18 AM CDT Height 175.3 cm (5' 9 ) 11/27/2023 10:18 AM CDT Body Mass Index 27.62 11/27/2023 10:18 AM CDT Plan of Treatment Health Maintenance Due Date Last Done Comments Albumin Creatinine Ratio, Urine 1965 Depression Screening 1965 Hepatitis C Screening 1965 Prostate Cancer Screening-PSA 1965 Dilated Eye Exam 1965 Foot Exam 1965 Hepatitis B Screening 07/05/1981 Regular Well Visit/Exam 18-64 07/05/1981 Pneumococcal vaccine <65 (1 of 2 - PCV) 07/05/1982 Zoster Vaccine (1 of 2) 07/05/2013 DTaP/Tdap/Td Vaccine (2 - Td or Tdap) 04/05/2020 04/05/2010, 03/08/1999 Hemoglobin A1C 05/30/2022 11/29/2021, 03/15, 11/09/2016 Lipid Panel 11/28/2022 11/28/2021, 10/17/2016 eGFR 07/15/2024 07/16/2023, 07/13, 07/24/2022, Additional history exists Influenza Vaccine (Season Ended) 2024 12/01/2021, 12/18/2018, 10/13/2016 Colon Cancer Screening-Colonoscopy 04/11/2033 04/12/2023, 05/11/2021, 10/24/2018, Additional history exists Colon Cancer Screening-CT Colonography Discontinued 04/12/2023, 05/11/2021, 10/24/2018, Additional history exists Colon Cancer Screening-DNA Stool Discontinued 04/12/2023, 05/11/2021, 10/24/2018, Additional history exists Colon Cancer Screening-FIT Discontinued , 05/11/2021, 10/24/2018, Additional history exists Colon Cancer Screening-Sigmoidoscopy Discontinued 04/12/2023, 05/11/2021, 10/24/2018, Additional history exists Medical Devices Implanted Type Area Paper Cup Machine Tender Device Identifier Shelf Expiration Date Model / Serial / Lot Icd-04/03/2017 Implanted:04/03 by Johnathon Fabian MD PhD (Quantity not on file) ICD Chest Medtronic Cardiac Rhythm Mgmt [id number] AMPILA / [id number] / Lead (Lv)-04/03/2017 Implanted:04/03 by Johnathon Fabian MD PhD (Quantity not on file) Lead Heart Medtronic Cardiac Rhythm Mgmt 4598/78 / [id number] / Lead (Ra)-04/03/2017 Implanted:04/03 by Johnathon Fabian MD PhD (Quantity not on file) Lead Heart Medtronic Cardiac Rhythm Mgmt 5076/52 / [id number] / Lead (Rv)-04/03/2017 Implanted:04/03 by Johnathon Fabian MD PhD (Quantity not on file) Lead Heart Medtronic Cardiac Rhythm Mgmt [id number]/55 / [id number] / Procedures Procedure Name Priority Date/Time Associated Diagnosis Comments HEART FAILURE DEVICE CHECK - REMOTE Routine 04/10/2024 12:32 PM OIL WELL DRILLING MANAGER Cardiomyopathy, ischemic DEVICE CHECK - REMOTE Routine 03/11/2024 6:38 AM OIL WELL DRILLING MANAGER HEART FAILURE DEVICE CHECK - REMOTE Routine 03/06/2024 2:53 PM OIL WELL DRILLING MANAGER Cardiomyopathy, ischemic EGFR Routine 07/16/2023 9:27 AM CDT Malignant neoplasm of sigmoid colon (HCC) COLONOSCOPY 04/12/2023 10:15 AM OIL WELL DRILLING MANAGER HEMOGLOBIN A1C Timed 11/29/2021 5:56 AM CDT LIPID PANEL Routine 11/28/2021 9:38 PM CDT from Last 3 Months or Most Recently Relevant to Health Maintenance Results * Heart Failure Device Check - Remote (04/10/2024 12:32 PM OIL WELL DRILLING MANAGER) Anatomical Region Laterality Modality Other Narrative 04/11/2024 11:25 AM OIL WELL DRILLING MANAGER Cory Conroy [id number] 1965 Date of Service: 04/10/24 Referring Physician: Derek Mora Billing Provider: Derke Mora Location: [id number] HF-Heart Failure Monitoring Office Appt/Visit:[email or web address]'s: 14053 REM ICV-P, G2066 REM ICV-T Diagnosis Code: I25.5 - Cardiomyopathy, Ischemic The Heart Failure/Cardiac Compass Report for the above date has been reviewed with the following results: Device Information: Medtronic FINANCE ASSOCIATE-D Ventricular Pacin.9% Impedance: Optivol within normal range Activity: not changed HRV: not changed Mean Heart Rate: not changed The following issues were identified: Mode switches: No Increased AF burden: No Decreased BiV pacing: No Shock/ATP received: No Increased V rate with AF: N/A Arrhythmia: No Increased V pacing: N/A The report revealed the following volume status: No change in volume status The following action is recommended: No action needed. Transmit as scheduled Jig Filler: Barby Goel Authorjono Provider Result Type Result Stat us Derek Mora MD [facility] PROC EDURES Final Result * DEVICE CHECK - REMOTE (03/11/2024 6:38 AM OIL WELL DRILLING MANAGER) Anatomical Region Laterality Modality Other 03/11/2024 6:38 AM OIL WELL DRILLING MANAGER Narrative 04/17/2024 9:14 PM OIL WELL DRILLING MANAGER Interpretation Summary: Battery and Leads (BL) Less than 1 year of battery longevity noted Normal parameters noted on battery and lead(s) --- 10 months remaining longevity (implanted 2017). Lead impedance, sensing, and threshold trends stable and appropriate. No short V-V intervals. Presenting Rhythm (WV) Atrial Sensing-Ventricular Pacing (-MARKET RESEARCH WORKER) --- /MARKET RESEARCH WORKER 73 to 75 bpm. Arrhythmic events (AE) No new arrhythmic events in monitoring period --- Since 12/14/23: No AHR or VHR episodes. Anticoagulation (AC) Patient prescribed Apixaban (Eliquis) Patient on anticoagulant therapy Transmission Information (TI) Device Summary Report Follow Up (FU) Patient's primary treating physician will be apprised of findings Procedure Note Johnathon Fabian MD PhD - 04/17/2024 Interpretation Summary: Battery and Leads (BL) Less than 1 year of battery longevity noted Normal parameters noted on battery and lead(s) --- 10 months remaininglongevity (implanted 2017). Lead impedance, sensing, and thresholdtrends stable and appropriate. No short V-V intervals. Presenting Rhythm (WV) Atrial Sensing-Ventricular Pacing (-MARKET RESEARCH WORKER) --- /MARKET RESEARCH WORKER 73 to 75 bpm. Arrhythmic events (AE) No new arrhythmic events in monitoring period --- Since 12/14/23: No AHRor VHR episodes. Anticoagulation (AC) Patient prescribed Apixaban (Eliquis) Patient on anticoagulant therapy Transmission Information (TI) Device Summary Report Follow Up (FU) Patient's primary treating physician will be apprised of findings us Johnathon Fabian MD PhD [facility] PROCEDURES Final Result * Heart Failure Device Check - Remote (03/06/2024 2:53 PM OIL WELL DRILLING MANAGER) Anatomical Region Laterality Modality Other Narrative 03/08/2024 8:46 AM OIL WELL DRILLING MANAGER Cory Conroy [id number] 1965 Date of Service: 03/06/24 Referring Physician: Derek Mora Billing Provider: Derek Mora Location: [address] HFM-Heart Failure Monitoring Office Appt/Visit:@[email or web address] CPT's: [id number] REM ICV-P, G2066 REM ICV-T Diagnosis Code: I25.5 - Cardiomyopathy, Ischemic The Heart Failure/Cardiac Compass Report for the above date has been reviewed with the following results: Device Information: Medtronic FINANCE ASSOCIATE-D Ventricular Pacin.9% Fluid Index: Optivol fluid ws trending up but self corrected Impedance: Slightly below reference line Activity: not changed HRV: Variable Mean Heart Rate: not changed The following issues were identified: Mode switches: No Increased AF burden: N/A Decreased BiV pacing: No Shock/ATP received: No Increased V rate with AF: N/A Arrhythmia: No Increased V pacing: N/A The report revealed the following volume status: Self corrected The following action is recommended: No action needed. Transmit as scheduled Jig Filler: Barby Goel us Derek Mora MD [facility] C[facility] PROC EDURES Final Result * eGFR (07/16/2023 9:27 AM CDT) eGFR >90 >=60 mL/min/1. 73 m2 Comment: Interpretive Data Reference Interval Normal >/= 90 mL/min/1.73m2 Mildly decreased* 60 - 89 mL/min/1.73m2 Mildly to moderately decreased 45 - 59 mL/min/1.73m2 Moderately to severely decreased 30 - 44 mL/min/1.73m2 Severely decreased 15 - 29 mL/min/1.73m2 Kidney Failure < 15 mL/min/1.73m2 *Relative to young adult level Estimated glomerular filtration rate is determined by the 2020 CKD-EPI equation recommended by the National [employer] (A Unifying Approach to GFR Estimation: Recommendations of the NKF-ASK Task Force on Reassessing the Inclusion of Race in Diagnosing Kidney Disease, JASN 2020). The CKD-EPI equation should not be used for patients with unstable renal function and has not been validated in children and those over 70. Current interpretive data was last reviewed 2020. Testing performed by: [facility] at [facility], [place] [address] Blood 07/16/2023 9:27 AM CDT 07/16/2023 9:27 AM CDT Ciara Gonzalez NP LAB BLOOD ORDERABLES Daily antunez Result [facility] [address] Department [place] [address] * Colonoscopy (04/12/2023 10:15 AM OIL WELL DRILLING MANAGER) Anatomical Region Laterality Modality Other Narrative Procedure Note Rakesh Chacon MD - 04/12/2023 10:15 AM CST ENDOSCOPY LAB Patient Name: Cory Conroy Procedure Date: 04/12/2023 10:15 AM Admit Type: Outpatient Room: [facility] Date of : 1965 Instrument Name:[id number][id number] Gender: Male Note Status: Finalized Procedure: Colonoscopy Indications: High risk colon cancer surveillance: Personalhistory of colon cancer. History of L sided colectomy Providers: Rakesh Chacon M.D. Referring MD: Jerri Velez M.D. Medicines: Monitored Anesthesia Care Complications: No immediate complications. Estimated Blood Loss: Estimated blood loss: none. Procedure: Pre-Anesthesia Assessment: - The risks and benefits of the procedure and the sedation options and risks were discussed with the patient. All questions were answered and informed consent was obtained. - Immediately prior to administration ofmedications, the patient was re-assessed for adequacy to receive sedatives. The benefits, risks and alternatives of theprocedure and sedation were discussed and informed consentwas obtained. All questions were answered. Please referto the signed informed consent document in the medical record. The scope was passed under direct vision.The Colonoscope was introduced through the sigmoid colostomy and advanced to the cecum, identified by appendiceal orifice and ileocecal valve. The scopewas passed under direct vision. The Colonoscope was introduced through the and advanced to the. The colonoscopy was performed without difficulty. The patient tolerated the procedure well. The bowel preparation used was GoLYTELY via split dose instruction. Findings: The perianal and digital rectal examinations were normal. 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 Two sessile polyps were found in the ascending colon. The polyps were2 to 3 mm in size. These polyps were removed with a jumbo cold forceps. Resection and retrieval were complete. The exam was otherwise without abnormality. Impression: - Two 2 to 3 mm polyps in the ascending colon,removed with a jumbo cold forceps. Resected andretrieved. - Diversion colitis. Recommendation: - Return to referring physician as previously scheduled. - Await pathology results. - Repeat colonoscopy in 2 years for surveillance. Attending Participation: I personally performed the entire procedure. Electronically signed by Rakesh Chacon M.D. Rakesh Chacon M.D. 04/12/2023 11:09:36 AM This document was signed electronically. Number of Addenda: 0 Note Initiated On: 04/12/2023 10:15 AM Scope Withdrawal Time: 0 hours 8 minutes 25 seconds Scope In: 10:22:03 AM Scope Out: 10:39:13 AM us Rakesh Chacon MD ENDOSCOPY PROCEDURES Final Result * (ABNORMAL) Hemoglobin A1c (11/29/2021 5:56 AM CDT) Pathologist [facility] [place] Hgb A1C 7.1(H) 4.0 - 5.6 % MICHAEL THOMPSON Estimated Average Glucose 157 mg/dL MICHAEL THOMPSON Comment: The ADA recommends reporting an estimated Average Glucose (eAG) with all Hemoglobin A1c results using the equation derived from a study of 507 normal and diabetic adults. Minority populations were underrepresented and children were not included. (Diabetes Care 2020; 43(S1): S66-S76). The eAG is not equivalent to a fasting glucose. Blood 11/29/2021 5:56 AM CDT 11/29/2021 6:33 AM CDT us Johnathon Fabian MD PhD LAB BLOOD ORDERABLE S Final Result [facility] Department [place] [address] * (ABNORMAL) Lipid panel (11/28/2021 9:38 PM CDT) Pathologist [facility] [place] Cholesterol 94 30 - 199 mg/dL [facility] Comment: Interpretive Data Ages < or = 19 years Acceptable: <170 mg/dL Borderline high: 170-199 mg/dL High: >or= 200 mg/dL Ages > or = 20 years Desirable: <200 mg/dL Borderline high: 200-239 mg/dL High: >or= 240 mg/dL Literature References: 1. Expert Panel on Integrated Guidelines for Cardiovascular Health and Risk Reduction in Children and Adolescents. Pediatrics 2011;128:S213 2. NCEP Expert Panel. Circulation 2004;110:227 Current Interpretive Data was last revised on 2017. Triglycerides 71 <=149 mg/dL [facility] Comment: Interpretive Data Ages < or = 9 years Acceptable: <75 mg/dL Borderline high: 75-99 mg/dL High: >or= 100 mg/dL Ages 10 to 20 years Acceptable: <90 mg/dL Borderline high: 90-129 mg/dL High: >or= 130 mg/dL Ages > or = 20 years Desirable: <150 mg/dL Borderline high: 150-199 mg/dL High: 200-499 mg/dL Very high: >or= 499 mg/dL Literature References: 1. Expert Panel on Integrated Guidelines for Cardiovascular Health and Risk Reduction in Children and Adolescents. Pediatrics 2011;128:S213 2. NCEP Expert Panel. Circulation 2004;110:227 Current Interpretive Data was last revised on 2017. HDL 39(L) >=40 mg/dL [facility] Comment: Interpretive Data Ages < or = 19 years Acceptable: >45 mg/dL Borderline low: 40-45 mg/dL Low: <40 mg/dL Ages > or = 20 years Desirable: >or= 60 mg/dL Low: <40 mg/dL Literature References: 1. Expert Panel on Integrated Guidelines for Cardiovascular Health and Risk Reduction in Children and Adolescents. Pediatrics 2011;128:S213 2. NCEP Expert Panel. Circulation 2004;110:227 Current Interpretive Data was last revised on 2017. LDL, calculated 41 <=129 mg/dL [facility] Comment: Interpretive Data Ages < or = 19 years Acceptable: <110 mg/dL Borderline high: 110-129 mg/dL High: >or= 130 mg/dL Ages > or = 20 years Optimal: <100 mg/dL Near optimal: 100-129 mg/dL Borderline high: 130-159 mg/dL High: >160 mg/dL Literature References: 1. Expert Panel on Integrated Guidelines for Cardiovascular Health and Risk Reduction in Children and Adolescents. Pediatrics 2011;128:S213 2. NCEP Expert Panel. Circulation 2004;110:227 Current Interpretive Data was last revised on 2017. Non-HDL Cholesterol 55 mg/dL [facility] Comment: Interpretive Data Ages < or = 19 years Acceptable: <120 mg/dL Borderline high: 120-144 mg/dL High: >145 mg/dL Ages > or = 20 years When triglycerides are >200 mg/dL, Non-HDL cholesterol is a secondary target of therapy with treatment goals that are 30 mg/dL greater than the LDL cholesterol target. Literature References: 1. Expert Panel on Integrated Guidelines for Cardiovascular Health and Risk Reduction in Children and Adolescents. Pediatrics 2011;128:S213 2. NCEP Expert Panel. Circulation 2004;110:227 Current Interpretive Data was last revised on 2017. Chol/HDL ratio 2 [facility] Blood 11/28/2021 9:38 PM CDT 11/28/2021 10:19 PM CDT us Johnathon Fabian MD PhD LAB BLOOD ORDERABLE S Final Result [facility] Department [place] [address] from Last 3 Months or Most Recently Relevant to Health Maintenance Insurance [employer]PA [employer] CARE OTHER [place] CHO[place] Advance Directives For more information, please contact: [phone] Documents on File Type Date Recorded Patient Technical Services Consultant Expl anation ADVANCE DIRECTIVE 04/09/2017 12:00 AM * Full Code (Latest Code Status on File) Date Activated Date Inactivated Comments 04/12/2023 9:17 AM 04/12/2023 3:31 PM * Full Code Date Activated Date Inactivated Comments 11/28/2021 8:15 PM 12/01/2021 4:35 PM * Full Code Date Activated Date Inactivated Comments 05/11/2021 9:22 AM 05/11/2021 2:48 PM * Full Code Date Activated Date Inactivated Comments 10/24/2018 8:26 AM 10/24/2018 2:14 PM * Full Code Date Activated Date Inactivated Comments 11/01/2017 10:38 AM 11/01/2017 3:24 PM Care Teams Oyster Culturist Relationship Specialty Start Date End Date Jerri Velez MD [address] [place] [address] [place] [address] PCP - General Family Practice 05/30/23 Carloz Ace MD [address] [facility] [address] [place] [address] Medical Oncologist/Migratory Worker Medical Oncology 08/09/17 Jonathan Rosario MD [address] [facility] [address] [place] [address] Referring Physician Colon and Rectal Surgery 08/09/17 Catalina Tan MD PhD [address] [facility] [address] [place] [address] Surgeon Transplant 08/09/17 Derek Mora MD [address] [facility] [address] [place] [address] Consulting Physician Transplant 08/09/17 Fanta Chauhan RN [address] [address] [place] [address] Heart Failure Coordinator Teradata Solution Architect 10/31/17 Jerri Velez MD [address] [facility] [address] [place] [address] Referring Physician Family Practice 12/18/18 Renetta Duenas RN Registered Nurse Teradata Solution Architect 08/07/19
--- OUTSIDE RECORDS SUMMARY | 2024-05-15 09:19 | XMS_ITS | Encounter Summary ---
Author Organization [facility] Address [address] [place] [address] Phone Care Team Providers Care Director Stage Name Role Phone Jerri Velez MD Primary Care Provider Be Soler MD Primary Care Provider + [phone] Jerri Velez MD Primary Care Provider Be Soler MD Primary Care Provider + [phone] Jerri Velez MD Primary Care Provider Carloz Ace MD Unavailable [phone] Jonathan Rosario MD Unavailable [phone] Catalina Tan MD PhD Unavailable [phone] Derek Mora MD Unavailable [phone] Be Soler MD Primary Care Provider + [phone] Jerri Velez MD Primary Care Provider Fanta Chauhan RN Unavailable [phone] Jerri Velez MD Unavailable + [phone] Renetta Duenas RN Unavailable [phone] Jerri Velez MD Primary Care Provider Encounter Details Date Type Department Care Team (Late st Contact Info) Description 06/04/2017 Orders Only [facility] Provider, MD Antonio [address] [place] [address] Social History Tobacco Use Types Packs/Day Years Used Date Smoking Tobacco: Never Sex and Gender Information Value Date Recorded Sex Assigned at Not on file Legal Sex Male 6:37 PM CDT Gender Identity Not on file Sexual Orientation Not on file documented as of this encounter Plan of Treatment Not on file documented as of this encounter Procedures Procedure Name Priority Date/Time Associated Diagnosis Comments CARDIOLOGY REPORT 06/04/2017 documented in this encounter Results * CARDIOLOGY REPORT (06/04/2017) Anatomical Region Laterality Modality Other Narrative 06/04/2017 Ordered by an unspecified provider. Historical Provider [facility] ALEJANDRO TOBAR Final Result documented in this encounter Visit Diagnoses Not on filedocumented in this encounter Care Teams Director Stage Relationship Specialty Start Date End Date Jerri Velez MD PCP - General 04/04/17 06/08/17 Be Soler MD [address] [place] [address] PCP - General 06/09/17 06/12/17 Jerri Velez MD PCP - General 06/13/17 06/19/17 Be Soler MD [address] [place], [place] [id number] PCP - General 06/20/17 07/11/17 Jerri Velez MD PCP - General 07/12/17 08/09/17 Be Soler MD [address] [place], [place] [id number] PCP - General 08/10/17 10/16/17 Jerri Velez MD PCP - General Family Practice 10/17/17 05/29/23 Jerri Velez MD [address] [place] [address] PCP - [facility] Family Practice 05/30/23 Carloz Ace MD [address] [facility] [address] [place] [address] Medical Oncologist/Hematologis t Medical Oncology 08/09/17 Jonathan Rosario MD [address] [facility] [address] [place] [address] Referring Physician Colon and Rectal Surgery 08/09/17 Catalina Tan MD PhD [address] [facility] [address] [place] [address] Surgeon Transplant 08/09/17 Derek Mora MD [address] [facility] [address] [place] [address] Consulting Physician Transplant 08/09/17 Fanta Chauhan, SOPHY [address] [facility] [address] [place] [address] Heart Failure Coordinator Swing Saw Operator 10/31/17 Jerri Velez MD Referring Physician Family Practice 12/18/18 Renetta Duenas, RN Registered Nurse Swing Saw Operator 08/07/19 documented as of this encounter
--- OUTSIDE RECORDS SUMMARY | 2024-05-15 09:19 | XMS_ITS | Encounter Summary ---
Author Organization [facility] Address [address] [place] [address] Phone Care Team Providers Care Product Inspection Supervisor Name Role Phone Jerri eVlez MD Primary Care Provider Be Soler MD Primary Care Provider + [phone] Jerri Velez MD Primary Care Provider Be Soler MD Primary Care Provider + [phone] Jerri Velez MD Primary Care Provider Carloz Ace MD Unavailable [phone] Jonathan Rosario MD Unavailable [phone] Ctaalina Tan MD PhD Unavailable [phone] Derek Mora MD Unavailable [phone] Be Soler MD Primary Care Provider + [phone] Jerri Velez MD Primary Care Provider Fanta Chauhan RN Unavailable +[phone] Jerri Velez MD Unavailable + [phone] Renetta Duenas RN Unavailable [phone] Jerri Velez MD Primary Care Provider Encounter Details Date Type Department Care Team (Late st Contact Info) Description 05/31/2017 Orders Only [facility] Provider, MD Antonio [address] [place] [id number] Social History Tobacco Use Types Packs/Day Years [...] Priority Date/Time Associated Diagnosis Comments CARDIOLOGY REPORT 05/31/2017 CARDIOLOGY REPORT 05/31/2017 documented in this encounter Results * CARDIOLOGY REPORT (05/31/2017) Anatomical Region Laterality Modality Other Narrative 05/31/2017 Ordered by an unspecified provider. Historical Provider [facility] PROCE DURES Final Result * CARDIOLOGY REPORT (05/31/2017) Anatomical Region Laterality Modality Other Narrative 05/31/2017 Ordered by an unspecified provider. Historical Provider [facility] C[facility] PROCE DURES Final Result documented in this encounter Visit Diagnoses Not on filedocumented in this encounter Care Teams Product Inspection Supervisor Relationship Specialty Start Date End Date Jerri Velez MD PCP - General 04/04/17 06/08/17 Be Soler MD [address] [place] [address] [place] [address] PCP - General 06/09/17 06/12/17 Jerri Velez MD PCP - General 06/13/17 06/19/17 Be Soler MD [address] [place] [address] PCP - General 06/20/17 07/11/17 Jerri Velez MD PCP - General 07/12/17 08/09/17 Be Soler MD [address] [place] [address] PCP - General 08/10/17 10/16/17 Jerri Velez MD PCP - General Family Practice 10/17/17 05/29/23 Jerri Velez MD [address] [place] [address] [address] PCP - General Family Practice 05/30/23 Carloz Ace MD [address] [place] [address] Medical Oncologist/Hematologis t Medical Oncology 08/09/17 Jonathan Rosario MD [address] [place] [address] Referring Physician Colon and Rectal Surgery 08/09/17 Catalina Tan MD PhD [address] [place] [address] Surgeon Transplant 08/09/17 Derek Mora MD [address] [place] [address] Consulting Physician Transplant 08/09/17 Fanta Chauhan, SOPHY [address] [facility] [address] [place] [address] Heart Failure Coordinator Renewable Energy Trader 10/31/17 Jerri Velez MD Referring Physician Family Practice 12/18/18 Renetta Duenas RN Registered Nurse Renewable Energy Trader 08/07/19 documented as of this encounter
--- OUTSIDE RECORDS SUMMARY | 2024-05-15 09:19 | XMS_ITS | Referral Summary ---
Author Organization [facility] Address [address] [place] [address] Care Team Providers Care Neon Technician Name Role Phone Carloz Ace MD Unavailable Jonathan Rosario MD Unavailable [phone] Catalina aTn MD PhD Unavailable [phone] Derek Mora MD Unavailable [phone] Fanta Chauhan RN Unavailable [phone] Jerri Velez MD Unavailable Renetta Duenas RN Unavailable [phone] Jerri Velez MD Primary Care Provider Encounters Date Type Department Care Team Description 04/10/2024 8:00 AM FISH DRESSING MACHINE FEEDER Ancillary Procedure [facility] [address] [phone] Cardiomyopathy, ischemic 03/11/2024 Orders Only [facility] [address] [facility] Office Building [address] [place] [address] Johnathon Fabian MD PhD 03/06/2024 8:00 AM FISH DRESSING MACHINE FEEDER Ancillary Procedure [facility] [address] [phone] Cardiomyopathy, ischemic from Last 3 Months Allergies No known active allergies Medications spironolactone [...] total) by mouth daily with breakfast 08/03/19 Active rOPINIRole (REQUIP) 2 mg tablet Take 1 tablet (2 mg total) by mouth nightly 08/17/19 Active Ozempic 1 mg/dose (4 mg/3 mL) pen injector injection Inject 1 mg under the skin once a week 08/03/19 Active sod sulf-pot chloride-mag sulf 1.479-0.188- 0.225 gram tablet Please follow the instructions provided by your [facility] office. For any questions call [phone]. 24 tablet 03/27/19 24 Active Entresto 97-103 [...] CDT): History of ischemic cardiomyopathy s/p medtronic CLOTH FINISHING RANGE TENDER-D implanted initially for primary prevention therapy. He [...] CDT): History of ischemic cardiomyopathy s/p medtronic CLOTH FINISHING RANGE TENDER-D implanted initially for primary prevention therapy. He [...] CDT): History of ischemic cardiomyopathy s/p medtronic CLOTH FINISHING RANGE TENDER-D implanted initially for primary prevention therapy. He [...] disease) 12/05/2017 Overview (12/05/2017): Cardiac catheterization at [facility] in [place] showed an 80% distal left main coronary [...] PM CDT): History of complex PCI in 2017 with successful percutaneous coronary intervention of distal circumflex, chronic total occlusion of left anterior descending, and distal left main -Continue home plavix, atorvastatin, metoprolol Assessment & Plan (11/29/2021 11:19 AM CDT): History of complex PCI in 2017 with successful percutaneous coronary intervention of distal [...] monitor on telemetry, daily weights Ischemic stroke ([facility]) 12/05/2017 Overview (12/05/2017): Ischemic stroke with right eye gaze palsy and left upper and lower extremity weakness with MRI showing mcukw-[id number]-yznofkmp infarcts within the right cerebral peduncle and [...] without residual deficits DVT (deep venous thrombosis) ([facility]) 8 Overview (12/05/2017): -Deep venous thrombosis of [...] Continue eliquis Cardiac resynchronization th erapy defibrillator (CLOTH FINISHING RANGE TENDER-D) in place 12/05/2017 Overview (12/05/2017): Status post CLOTH FINISHING RANGE TENDER-D implanted 04/03/[address] Nitin Fabian. Device is a [facility] MRI compatible device. Malignant neoplasm of sigmoid [...] Overview (12/05/2017): Initial creatinine on transfer to [facility] was 1.66; this jerome to a peak of 3.09 and ultimately normalized Immunizations Immunization Administration Dates Next Due Hep A, Adult 10/14/1999,03/08/1999 Influenza, Quadrivalent, Aria l Culture-based MDCK, Preservative Free, Antibiotic Free, Intramuscular 12/18/2018 Influenza, Quadrivalent, Spl it, Preservative Free, Intramuscular 12/01/2021 Influenza, Unspecified 10/13/2016 Td, adsorbed 03/08/1999 Tdap 04/05/2010 Social History Tobacco Use Types Packs/Day Years [...] on file Sexual Orientation Not on file Last Filed Vital Signs Vital Sign Reading [...] 11/27/2023 10:18 AM CDT Plan of Treatment Not on file Medical Devices Implanted Type Area Otolaryngology Rep Device Identifier Shelf Expiration Date Model / Serial / Lot Icd-04/03/2017 Implanted:04/03 by Johnathon Fabian MD PhD (Quantity not on file) ICD Chest Medtronic Cardiac Rhythm Mgmt [id number] AMPILA / [id number] / Lead (Lv)-04/03/2017 Implanted:04/03 by Johnathon Fabian MD PhD (Quantity not on file) Lead Heart Medtronic Cardiac Rhythm Mgmt 4598/78 / [id number] / Lead (Ra)-04/03/2017 Implanted:04/03 by Johnathon Fabian MD PhD (Quantity not on file) Lead Heart Medtronic Cardiac Rhythm Mgmt 5076/52 / [id number] / Lead (Rv)-04/03/2017 Implanted:04/03 by Johnathon Fabian MD PhD (Quantity not on file) Lead Heart Medtronic Cardiac Rhythm Mgmt 6935M/55 / [id number] / Procedures Procedure Name Priority Date/Time Associated Diagnosis Comments HEART FAILURE DEVICE CHECK - REMOTE Routine 04/10/2024 12:32 PM FISH DRESSING MACHINE FEEDER Cardiomyopathy, ischemic DEVICE CHECK - REMOTE Routine 03/11/2024 6:38 AM FISH DRESSING MACHINE FEEDER HEART FAILURE DEVICE CHECK - REMOTE Routine 03/06/2024 2:53 PM FISH DRESSING MACHINE FEEDER Cardiomyopathy, ischemic EGFR Routine 07/16/2023 9:27 AM CDT Malignant neoplasm of sigmoid colon (HCC) COLONOSCOPY 04/12/2023 10:15 AM FISH DRESSING MACHINE FEEDER HEMOGLOBIN A1C Timed 11/29/2021 5:56 AM CDT LIPID PANEL Routine 11/28/2021 9:38 PM CDT from Last 3 Months or Most Recently Relevant to Health Maintenance Results * Heart Failure Device Check - Remote (04/10/2024 12:32 PM FISH DRESSING MACHINE FEEDER) Anatomical Region Laterality Modality Other Narrative 04/11/2024 11:25 AM FISH DRESSING MACHINE FEEDER Cory Conroy [id number] Date of Service: 04/10/24 Referring Physician: Derek Mora Billing Provider: Derek Mora Location: [address] HFM-Heart Failure Monitoring Office Appt/Visit:@[email or web address]@ CPT's: 95193 REM ICV-P, G2066 REM ICV-T Diagnosis Code: I25.5 - Cardiomyopathy, Ischemic The Heart Failure/Cardiac Compass Report for the above date has been reviewed with the following results: Device Information: Medtronic CLOTH FINISHING RANGE TENDER-D Ventricular Pacin.9% Impedance: Optivol within normal range [...] recommended: No action needed. Transmit as scheduled Complex Care Nurse: Barby Goel Authorjono Provider Result Type Result Stat us Derek Mora MD CV CARDIAC SERVICES PROC EDURES Final Result * DEVICE CHECK - REMOTE (03/11/2024 6:38 AM FISH DRESSING MACHINE FEEDER) Anatomical Region Laterality Modality Other 03/11/2024 6:38 AM FISH DRESSING MACHINE FEEDER Narrative 04/17/2024 9:14 PM FISH DRESSING MACHINE FEEDER Interpretation Summary: Battery and Leads (BL) Less than 1 year of battery longevity noted Normal parameters noted on battery and lead(s) --- 10 months remaining longevity (implanted 2017). Lead impedance, sensing, and threshold trends stable and appropriate. No short V-V intervals. Presenting Rhythm (VA) Atrial Sensing-Ventricular Pacing (-SUPERINTENDENT PRESSURE) --- /SUPERINTENDENT PRESSURE 73 to 75 bpm. Arrhythmic events (AE) [...] appropriate. No short V-V intervals. Presenting Rhythm (VA) Atrial Sensing-Ventricular Pacing (-SUPERINTENDENT PRESSURE) --- /SUPERINTENDENT PRESSURE 73 to 75 bpm. Arrhythmic events (AE) No new arrhythmic events in monitoring period --- Since 12/14/23: No AHRor VHR episodes. Anticoagulation (AC) Patient prescribed Apixaban (Eliquis) Patient on anticoagulant therapy Transmission Information (TI) Device Summary Report Follow Up (FU) Patient's primary treating physician will be apprised of findings Johnathon Fabian MD PhD CV CARDIAC SERVICES PROCEDURES Final Result * Heart Failure Device Check - Remote (03/06/2024 2:53 PM FISH DRESSING MACHINE FEEDER) Anatomical Region Laterality Modality Other Narrative 03/08/2024 8:46 AM FISH DRESSING MACHINE FEEDER Cory Conroy [id number] Date of Service: 03/06/24 Referring Physician: Derek Mora Billing Provider: Derek Mora Location: [address] HFM-Heart Failure Monitoring Office Appt/Visit:@[facility]@ CPT's: 32490 REM ICV-P, G2066 REM ICV-T Diagnosis Code: I25.5 - Cardiomyopathy, Ischemic The Heart Failure/Cardiac Compass Report for the above date has been reviewed with the following results: Device Information: Medtronic CLOTH FINISHING RANGE TENDER-D Ventricular Pacin.9% Fluid Index: Optivol fluid ws [...] recommended: No action needed. Transmit as scheduled Complex Care Nurse: Barby Goel us Derek Mora MD CV [...] was last reviewed 2020. Testing performed by: [facility], [place] [address] Blood 07/16/2023 9:27 AM CDT 07/16/2023 9:27 AM CDT us Ciara Gonzalez NP LAB BLOOD ORDERABLES Daily antunez Result MICHAEL ESPINOZA [address] Department [place] [address] * Colonoscopy (04/12/2023 10:15 AM FISH DRESSING MACHINE FEEDER) Anatomical Region Laterality Modality Other Narrative Procedure Note Rakesh Chacon MD - 04/12/2023 10:15 AM CST ENDOSCOPY LAB Patient Name: Cory Conroy Procedure Date: 04/12/2023 10:15 AM Admit Type: Outpatient Room: [facility] Date of : 1965 Instrument Name:[id number] Gender: Male Note Status: Finalized Procedure: Colonoscopy [...] (ABNORMAL) Hemoglobin A1c (11/29/2021 5:56 AM CDT) Hgb A1C 7.1(H) 4.0 - 5.6 % MICHAEL REEVES Estimated Average Glucose 157 mg/dL MICHAEL REEVES Comment: The ADA recommends reporting an estimated [...] PhD LAB BLOOD ORDERABLE S Final Result [facility] Department [place] [address] * (ABNORMAL) Lipid panel (11/28/2021 9:38 PM CDT) Cholesterol 94 30 - 199 mg/dL MICHAEL THOMPSON Comment: Interpretive Data Ages < or = [...] revised on 2017. Triglycerides 71 <=149 mg/dL MICHAEL THOMPSON Comment: Interpretive Data Ages < or = [...] revised on 2017. HDL 39(L) >=40 mg/dL MICHAEL THOMPSON Comment: Interpretive Data Ages < or = [...] on 2017. LDL, calculated 41 <=129 mg/dL MICHAEL [facility] Comment: Interpretive Data Ages < or = [...] on 2017. Non-HDL Cholesterol 55 mg/dL MICHAEL [facility] Comment: Interpretive Data Ages < or = [...] last revised on 2017. Chol/HDL ratio 2 MICHAEL THOMPSON Blood 11/28/2021 9:38 PM CDT 11/28/2021 10:19 PM CDT us Johnathon Fabian MD PhD LAB BLOOD ORDERABLE S Final Result [facility] Department [place] [address] from Last 3 Months or Most Recently Relevant to Health Maintenance Insurance [employer]OH [employer] CARE OTHER [place] Advance Directives For more information, please contact: [phone] Documents on File Type Date Recorded Patient Credit Verification Clerk Expl anation ADVANCE DIRECTIVE 04/09/2017 12:00 AM [...] 10:38 AM 11/01/2017 3:24 PM Care Teams Neon Technician Relationship Specialty Start Date End Date Jerri Velez MD [address] [place] [address] PCP - General Family Practice 05/30/23 Carloz Ace MD [address] [address] Medical Oncologist/Machine I Cutter Medical Oncology 08/09/17 Jonathan Rosario MD [address] [address] Referring Physician Colon and Rectal Surgery 08/09/17 Catalina Tan MD PhD [address] [address] Surgeon Transplant 08/09/17 Derek Mora MD [address] [address] Consulting Physician Transplant 08/09/17 Fanta Chauhan RN [address] [address] Heart Failure Coordinator Tin Roofer 10/31/17 Jerri Velez MD [address] [address] Referring Physician Family Practice 12/18/18 Renetta Duenas, RN Registered Nurse Tin Roofer 08/07/19
--- OUTSIDE RECORDS SUMMARY | 2024-05-15 09:19 | XMS_ITS ---
Author Organization [facility] Address [address] [place] [address] Care Team Providers Care Dry Ice Machine Operator Name Role Phone Carloz Ace MD Unavailable Jonathan Rosario MD Unavailable [phone] Catalina Tan MD PhD Unavailable [phone] Derek Mora MD Unavailable [phone] Fanta Chauhan RN Unavailable [phone] Jerri Velez MD Unavailable [phone] Renetta Duenas RN Unavailable [phone] Jerri Velez MD Primary Care Provider Transplant Episode Heart Candidate [facility] ([place], [place]) - [facility] Referred on 10/18/2016 Marked as Ineligible on 12/13/2017 Heart CoordinatorHistorical ProviderMD Fax: N/A Email: N/A Care Team Name Role Phone Fax Email Historical MD Ludwig Fruit Bar Maker [phone] N/A N/A Events Pre-Transplant Referred: 10/18/2016
--- OUTSIDE RECORDS SUMMARY | 2024-05-15 09:19 | XMS_ITS | Encounter Summary ---
Author Organization [facility] Address [address] [place] [address] Phone Care Team Providers Care Machine Compositor Name Role Phone Jerri Velez MD Primary Care Provider Be Soler MD Primary Care Provider [phone] Jerri Velez MD Primary Care Provider Be Soler MD Primary Care Provider [phone] Jerri Velez MD Primary Care Provider Carloz Ace MD Unavailable [phone] Jonathan Rosario MD Unavailable [phone] Catalina Tan MD PhD Unavailable [phone] Derek Mora MD Unavailable [phone] Be Soler MD Primary Care Provider [phone] Jerri Velez MD Primary Care Provider Fanta Chauhan RN Unavailable [phone] Jerri Velez MD Unavailable [phone] Renetta Duenas RN Unavailable [phone] Jerri Velez MD Primary Care Provider Encounter Details Date Type Department Care Team (Late st Contact Info) Description 05/07/2017 Orders Only [facility] IM CAR CLINCONV Provider, MD Antonio [address] [place] [id number] Social History Tobacco Use Types Packs/Day Years [...] Priority Date/Time Associated Diagnosis Comments CARDIOLOGY REPORT 05/07/2017 CARDIOLOGY REPORT 05/07/2017 documented in this encounter Results * CARDIOLOGY REPORT (05/07/2017) Anatomical Region Laterality Modality Other Narrative 05/07/2017 Ordered by an unspecified provider. Historical Provider CV CARDIAC SERVICES PROCE DURES Final Result * CARDIOLOGY REPORT (05/07/2017) Anatomical Region Laterality Modality Other Narrative 05/07/2017 Ordered by an unspecified provider. Historical Provider CV CARDIAC SERVICES PROCE DURES Final Result documented in this encounter Visit Diagnoses Not on filedocumented in this encounter Care Teams Machine Compositor Relationship Specialty Start Date End Date Jerri Velez MD PCP - General 04/04/17 06/08/17 Be Soler MD [address] [place] [address] PCP - General 06/09/17 06/12/17 Jerri Velez MD PCP - General 06/13/17 06/19/17 Be Soler MD [address] [address] PCP - General 06/20/17 07/11/17 Jerri Velez MD PCP - General 07/12/17 08/09/17 Be Soler MD [address] [place] [address] PCP - General 08/10/17 10/16/17 Jerri Velez MD PCP - General Family Practice 10/17/17 05/29/23 Jerri Velez MD [address] [place] [address] [address] PCP - General Family Practice 05/30/23 Carloz Ace MD [address] [place] [address] Medical Oncologist/Hematologis t Medical Oncology 08/09/17 Jonathan Rosario MD [address] [place] [address] Referring Physician Colon and Rectal Surgery 08/09/17 Catalina Tan MD PhD [address] [place] [address] Surgeon Transplant 08/09/17 Derek Mora MD [address] [place] [address] Consulting Physician Transplant 08/09/17 Fanta Chauhan, SOPHY [address] [facility] [address] [place] [address] Heart Failure Coordinator Biodiesel Production Technician 10/31/17 Jerri Velez MD Referring Physician Family Practice 12/18/18 Renetta Duenas RN Registered Nurse Biodiesel Production Technician 08/07/19 documented as of this encounter
[2024-05-15 12:10] LABS: Alanine Aminotransferase 19 U/L (6-50); Albumin Level 4.3 g/dL (3.5-5.1); Alkaline Phosphatase 76 U/L (38-126); Anion Gap 8 mmol/L (4-12); Aspartate Amino Transferase 47 U/L (17-59); Bilirubin,Total 0.5 mg/dL (0.2-1.3); Blood Urea Nitrogen 19 mg/dL (9-20); Calcium 9.8 mg/dL (8.4-10.2); Carbon Dioxide 30 mmol/L (22-30); Chloride 101 mmol/L (98-107); Estimated Glomerular Filt Rate > 60; Glucose 153 mg/dL (65-110); Potassium 5.7 mmol/L (3.4-5.0); Sodium 139 mmol/L (137-145)
[2024-05-15 13:12] LABS: Hemoglobin A1C 7.5 % (<5.7)
== END 2024-05-15 09:06 | disposition home or self-care (01) ==
LOC: ANHGOSHLAB 09:06
PROVIDERS: PCP Family Medicine; Visit Provider Family Medicine
DX: E11.9 Type 2 diabetes mellitus without complications (principal); I10 Essential (primary) hypertension
CPT/HCPCS: 36415; 80053; 83036

== ENCOUNTER 2024-05-21 08:29 | Outpatient (CLI) | payer BC, SELFPAY ==
--- OUTSIDE RECORDS SUMMARY | 2024-05-21 08:49 | XMS_ITS | Referral Summary ---
Author Organization [facility] Address [address] [place] [address] Care Team Providers Care Special Officer Automat Name Role Phone Carloz Ace MD Unavailable Jonathan Rosario MD Unavailable Catalina Tan MD PhD Unavailable [phone] Derek Mora MD Unavailable Fanta Chauhan RN Unavailable [phone] Jerri Velez MD Unavailable [phone] Renetta Duenas RN Unavailable Jerri Velez MD Primary Care Provider Encounters Date Type Department Care Team Description 05/15/2024 8:00 AM CDT Ancillary Procedure [facility] [address] [address] Cardiomyopathy, ischemic 04/10/2024 8:00 AM PRE PRESS OPERATOR Ancillary Procedure [facility] [address] [address] Cardiomyopathy, ischemic 03/11/2024 Orders Only [facility] 1020 [facility] Office Building [address] [place] [address] Johnathon Fabian MD PhD 03/06/2024 8:00 AM PRE PRESS OPERATOR Ancillary Procedure [facility] [address] [address] Cardiomyopathy, ischemic from Last 3 Months Allergies [...] Please follow the instructions provided by your [facility] office. For any questions call [phone]. 24 tablet 03/27/19 24 Active Entresto 97-103 [...] CDT): History of ischemic cardiomyopathy s/p medtronic SAS PROGRAMMER ANALYST-D implanted initially for primary prevention therapy. He [...] CDT): History of ischemic cardiomyopathy s/p medtronic SAS PROGRAMMER ANALYST-D implanted initially for primary prevention therapy. He [...] CDT): History of ischemic cardiomyopathy s/p medtronic SAS PROGRAMMER ANALYST-D implanted initially for primary prevention therapy. He [...] disease) 12/05/2017 Overview (12/05/2017): Cardiac catheterization at [facility] in [place] showed an 80% distal left main coronary [...] monitor on telemetry, daily weights Ischemic stroke ([facility]) 12/05/2017 Overview (12/05/2017): Ischemic stroke with right eye gaze palsy and left upper and lower extremity weakness with MRI showing rygdo-hg-whkntmbu infarcts within the right cerebral peduncle and [...] without residual deficits DVT (deep venous thrombosis) ([facility]) 8 Overview (12/05/2017): -Deep venous thrombosis of [...] Continue eliquis Cardiac resynchronization th erapy defibrillator (SAS PROGRAMMER ANALYST-D) in place 12/05/2017 Overview (12/05/2017): Status post SAS PROGRAMMER ANALYST-D implanted 04/03/[address] Nitin Fabian. Device is a [employer] MRI compatible device. Malignant neoplasm of sigmoid [...] Overview (12/05/2017): Initial creatinine on transfer to [facility] was 1.66; this jerome to a peak [...] on file Medical Devices Implanted Type Area Restorative Coordinator Device Identifier Shelf Expiration Date Model / Serial / Lot Icd-04/03/2017 Implanted:04/03 by Johnathon Fabian MD PhD (Quantity not on file) ICD Chest Medtronic Cardiac Rhythm Mgmt [id number] AMPILA / [id number] / Lead (Lv)-04/03/2017 Implanted:04/03 by Johnathon Fabian MD PhD (Quantity not on file) Lead Heart Medtronic Cardiac Rhythm Mgmt 4598/78 / [id number] / Lead (Ra)-04/03/2017 Implanted:04/03 by Johnathon Fabian MD PhD (Quantity not on file) Lead Heart Medtronic Cardiac Rhythm Mgmt 5076/52 / [id number] / Lead (Rv)-04/03/2017 Implanted:04/03 by Johnathon Fabian MD PhD (Quantity not on file) Lead Heart Medtronic Cardiac Rhythm Mgmt 6935M/55 / [id number] / Procedures Procedure Name Priority Date/Time Associated Diagnosis Comments HEART FAILURE DEVICE CHECK - REMOTE Routine 05/16/2024 12:24 PM CDT Cardiomyopathy, ischemic HEART FAILURE DEVICE CHECK - REMOTE Routine 04/10/2024 12:32 PM PRE PRESS OPERATOR Cardiomyopathy, ischemic DEVICE CHECK - REMOTE Routine 03/11/2024 6:38 AM PRE PRESS OPERATOR HEART FAILURE DEVICE CHECK - REMOTE Routine 03/06/2024 2:53 PM PRE PRESS OPERATOR Cardiomyopathy, ischemic EGFR Routine 07/16/2023 9:27 AM CDT Malignant neoplasm of sigmoid colon (HCC) COLONOSCOPY 04/12/2023 10:15 AM PRE PRESS OPERATOR HEMOGLOBIN A1C Timed 11/29/2021 5:56 AM CDT LIPID PANEL Routine 11/28/2021 9:38 PM CDT from Last 3 Months or Most Recently Relevant to Health Maintenance Results * Heart Failure Device Check - Remote (05/16/2024 12:24 PM CDT) Anatomical Region Laterality Modality Other Narrative 05/19/2024 10:57 AM CDT Cory Conroy [id number] 1965 Date of Service: 05/15/24 Referring Physician: Derek Mora Billing Provider: Derek Mora Location: [address] HFM-Heart Failure Monitoring Office Appt/Visit:@[email or web address]@ CPT's: 97514 REM ICV-P, G2066 REM ICV-T Diagnosis Code: I25.5 - Cardiomyopathy, Ischemic The Heart Failure/Cardiac Compass Report for the above date has been reviewed with the following results: Device Information: Medtronic SAS PROGRAMMER ANALYST-D Ventricular Pacin.9% Fluid Index: OptiVol stable, remains within reference range Impedance: Currently at reference line Activity: not changed HRV: not changed Mean [...] recommended: No action needed. Transmit as scheduled Family And Divorce Legal Assistant: Barby Goel Authorjono Provider Result Type Result Stat us Derek Mora MD CV CARDIAC SERVICES PROC EDURES Final Result * Heart Failure Device Check - Remote (04/10/2024 12:32 PM PRE PRESS OPERATOR) Anatomical Region Laterality Modality Other Narrative 04/11/2024 11:25 AM PRE PRESS OPERATOR Cory Conroy [id number] 1965 Date of Service: 04/10/24 Referring Physician: Derek Mora Billing Provider: Derek Mora Location: [address] HF-Heart Failure Monitoring Office Appt/Visit:@[email or web address]@ CPT's: 84033 REM ICV-P, G2066 REM ICV-T Diagnosis Code: I25.5 - Cardiomyopathy, Ischemic The Heart Failure/Cardiac Compass Report for the above date has been reviewed with the following results: Device Information: Medtronic SAS PROGRAMMER ANALYST-D Ventricular Pacin.9% Impedance: Optivol within normal range [...] recommended: No action needed. Transmit as scheduled Family And Divorce Legal Assistant: Barby Goel Authorjono Provider Result Type Result Stat us Derek Mora MD CV CARDIAC SERVICES PROC EDURES Final Result * DEVICE CHECK - REMOTE (03/11/2024 6:38 AM PRE PRESS OPERATOR) Anatomical Region Laterality Modality Other 03/11/2024 6:38 AM PRE PRESS OPERATOR Narrative 04/17/2024 9:14 PM PRE PRESS OPERATOR Interpretation Summary: Battery and Leads (BL) Less than 1 year of battery longevity noted Normal parameters noted on battery and lead(s) --- 10 months remaining longevity (implanted 2017). Lead impedance, sensing, and threshold trends stable and appropriate. No short V-V intervals. Presenting Rhythm (OH) Atrial Sensing-Ventricular Pacing (-PODIATRIST) --- /PODIATRIST 73 to 75 bpm. Arrhythmic events (AE) [...] appropriate. No short V-V intervals. Presenting Rhythm (OH) Atrial Sensing-Ventricular Pacing (-PODIATRIST) --- /PODIATRIST 73 to 75 bpm. Arrhythmic events (AE) [...] Device Check - Remote (03/06/2024 2:53 PM PRE PRESS OPERATOR) Anatomical Region Laterality Modality Other Narrative 03/08/2024 8:46 AM PRE PRESS OPERATOR Cory Conroy [id number] 1965 Date of Service: 03/06/24 Referring Physician: Derek Mora Billing Provider: Derek Mora Location: [address] HF-Heart Failure Monitoring Office Appt/Visit:@[email or web address]@ CPT's: 50641 REM ICV-P, G2066 REM ICV-T Diagnosis Code: I25.5 - Cardiomyopathy, Ischemic The Heart Failure/Cardiac Compass Report for the above date has been reviewed with the following results: Device Information: Medtronic SAS PROGRAMMER ANALYST-D Ventricular Pacin.9% Fluid Index: Optivol fluid ws [...] recommended: No action needed. Transmit as scheduled Family And Divorce Legal Assistant: Barby Goel us Derek Mora MD CV [...] was last reviewed 2020. Testing performed by: [facility], [place] [address] Blood 07/16/2023 9:27 AM CDT 07/16/2023 9:27 AM CDT Ciara Gonzalez NP LAB BLOOD ORDERABLES Daily l Result [facility] [address] Department [place] [address] * Colonoscopy (04/12/2023 10:15 AM PRE PRESS OPERATOR) Anatomical Region Laterality Modality Other Narrative Procedure Note Rakesh Chacon MD - 04/12/2023 10:15 AM CST ENDOSCOPY LAB Patient Name: Cory Conroy Procedure Date: 04/12/2023 10:15 AM Admit Type: Outpatient Room: [facility] Date of : 1965 Instrument Name:-[id number],[id number] Gender: Male Note Status: Finalized Procedure: Colonoscopy [...] In: 10:22:03 AM Scope Out: 10:39:13 AM Rakesh Chacon MD ENDOSCOPY PROCEDURES Final Result * (ABNORMAL) Hemoglobin A1c (11/29/2021 5:56 AM CDT) Hgb A1C 7.1(H) 4.0 - 5.6 % [facility] Estimated Average Glucose 157 mg/dL [facility] [...] 5:56 AM CDT 11/29/2021 6:33 AM CDT Johnathon Fabian MD PhD LAB BLOOD ORDERABLE S Final Result [facility] Department [place] [address] * (ABNORMAL) Lipid panel (11/28/2021 9:38 PM [...] on 2017. Triglycerides 71 <=149 mg/dL [facility] Comment: Interpretive Data Ages < or = [...] on 2017. HDL 39(L) >=40 mg/dL [facility] Comment: Interpretive Data Ages < or = [...] on 2017. LDL, calculated 41 <=129 mg/dL [facility] Comment: Interpretive Data Ages < or [...] revised on 2017. Non-HDL Cholesterol 55 mg/dL [facility] Comment: Interpretive Data Ages < or [...] last revised on 2017. Chol/HDL ratio 2 [facility] Blood 11/28/2021 9:38 PM CDT 11/28/2021 10:19 PM CDT us Johnathon Fabian MD PhD LAB BLOOD ORDERABLE S Final Result [facility] Department [place] [address] from Last 3 Months or Most Recently Relevant to Health Maintenance Insurance [employer] IDPA [employer] C[employer] OTHER [place] CHO[place] Advance Directives For more information, please contact: [phone] Documents on File Type Date Recorded Patient Ell Tutor Expl anation ADVANCE DIRECTIVE 04/09/2017 12:00 AM [...] 10:38 AM 11/01/2017 3:24 PM Care Teams Special Officer Automat Relationship Specialty Start Date End Date Jerri Velez MD [address] [place] [address] [address] PCP - General Family Practice 05/30/23 Carloz Ace MD [address] [facility] [address] [place] [address] Medical Oncologist/Crusher Supervisor Medical Oncology 08/09/17 Jonathan Rosario MD [address] [facility] [address] [place] [address] Referring Physician Colon and Rectal Surgery 08/09/17 Catalina Tan MD PhD [address] [facility] [address] [place] [address] Surgeon Transplant 08/09/17 Derek Mora MD [address] [facility] [address] [place] [address] Consulting Physician Transplant 08/09/17 Fanta Chauhan RN [address] [place] [address] Heart Failure Coordinator Design Project Manager 10/31/17 Jerri Velez MD [address] [place] [address] Referring Physician Family Practice 12/18/18 Renetta Duenas RN Registered Nurse Design Project Manager 08/07/19
--- OUTSIDE RECORDS SUMMARY | 2024-05-21 08:50 | XMS_ITS | Encounter Summary ---
Author Organization [facility] Address [address] [place] [address] Phone Care Team Providers Care Dye Weigher Helper Name Role Phone Jerri Velez MD Primary Care Provider Be Soler MD Primary Care Provider + [phone] Jerri Velez MD Primary Care Provider Be Soler MD Primary Care Provider + [phone] Jerri Velez MD Primary Care Provider Carloz Ace MD Unavailable [phone] Jonathan Rosario MD Unavailable [phone] Catalina Tan MD PhD Unavailable [phone] Derek Mora MD Unavailable [phone] Be Soler MD Primary Care Provider + [phone] Jerri Velez MD Primary Care Provider Fanta Chuahan RN Unavailable +[phone] Jerri Velez MD Unavailable + [phone] Renetta Duenas RN Unavailable +[phone] Jerri Velez MD Primary Care Provider Encounter Details Date Type Department Care Team (Late st Contact Info) Description 04/04/2017 Orders Only [facility] Provider, MD Antonio [address] [place] [address] Social History Tobacco Use Types Packs/Day [...] on filedocumented in this encounter Care Teams Dye Weigher Helper Relationship Specialty Start Date End Date Jerri Velez MD PCP - General 04/04/17 06/08/17 [place] [address] PCP - General 06/09/17 06/12/17 Jerri Velez MD PCP - General 06/13/17 06/19/17 Be Soler MD [address] [place] [address] PCP - General 06/20/17 07/11/17 Jerri Velez MD PCP - General 07/12/17 08/09/17 [place] [address] PCP - General 08/10/17 10/16/17 Jerri Velez MD PCP - General Family Practice 10/17/17 05/29/23 Jerri Velez MD [address] [place] [address] PCP - [facility] Family Practice 05/30/23 Carloz Ace MD [address] [facility] [address] [place] [address] Medical Oncologist/Hematologis t Medical Oncology 08/09/17 Jonathan Rosario MD [address] [facility] [address] [place] [address] Referring Physician Colon and Rectal Surgery 08/09/17 Catalina Tan MD PhD [address] [facility] [address] [place] [address] Surgeon Transplant 08/09/17 Derek Mora MD 49[address] [facility] [address] [place] [address] Consulting Physician Transplant 08/09/17 Fanta Chauhan, RN [address] [facility] [address] [place] [address] Heart Failure Coordinator Carpenter Inspector 10/31/17 Jerri Velez MD Referring Physician Family Practice 12/18/18 Renetta Duenas, RN Registered Nurse Carpenter Inspector 08/07/19 documented as of this encounter
--- OUTSIDE RECORDS SUMMARY | 2024-05-21 08:50 | XMS_ITS | Encounter Summary ---
Author Organization [facility] Address [address] [place] [address] Care Team Providers Care Property Preservation Specialist Name Role Phone Carloz Ace MD Unavailable [phone] Jonathan Rosario MD Unavailable +[phone] Catalina Tan MD PhD Unavailable [phone] Derek Mora MD Unavailable [phone] Jerri Velez MD Primary Care Provider Fanta Chauhan RN Unavailable [phone] Jerri Velez MD Unavailable +[phone] Renetta Duenas RN Unavailable [phone] Jerri Velez MD Primary Care Provider Encounter Details Date Type Department Care Team (Late st Contact Info) Description 08/16/2021 Telephone [facility] Transplant Heart [address] [facility] [phone] [place] [address] Milli Fang Social History Tobacco [...] on filedocumented in this encounter Care Teams Property Preservation Specialist Relationship Specialty Start Date End Date Jerri Velez MD [address] [address] PCP - General Family Practice 10/17/17 05/29/23 Jerri Velez MD [address] [place] [address] PCP - General Family Practice 05/30/23 [place] [address] [place] [address] Medical Oncologist/Farm Operator Medical Oncology 08/09/17 Jonathan Rosario MD [address] [address] Referring Physician Colon and Rectal Surgery 08/09/17 [place] PhD [address] [place] [address] Surgeon Transplant 08/09/17 Derek Mora MD [address] [place] [address] Consulting Physician Transplant 08/09/17 Fanta Chauhan RN [address] [facility] [address] [place] [address] Heart Failure Coordinator Quality Compliance Manager 10/31/17 Jerri Velez MD 4921 [facility] [address] [place] [address] Referring Physician Family Practice 12/18/18 Renetta Duenas, RN Registered Nurse Quality Compliance Manager 08/07/19 documented as of this encounter
--- OUTSIDE RECORDS SUMMARY | 2024-05-21 08:50 | XMS_ITS | Encounter Summary ---
Author Organization [facility] Address [address] [place] [address] Phone Care Team Providers Care Bean Viner Name Role Phone Jerri Velez MD Primary Care Provider Be Soler MD Primary Care Provider + [phone] Jerri Velez MD Primary Care Provider Be Soler MD Primary Care Provider + [phone] Jerri Velez MD Primary Care Provider Carloz Ace MD Unavailable [phone] Jonathan Rosario MD Unavailable [phone] Catalina Tan MD PhD Unavailable [phone] Derek Mora MD Unavailable [phone] Be Soler MD Primary Care Provider + [phone] Jerri Velez MD Primary Care Provider Fanta Chauhan RN Unavailable +[phone] Jerri Velez MD Unavailable + [phone] Renetta Duenas RN Unavailable [phone] Jerri Velez MD Primary Care Provider Encounter Details Date Type Department Care Team (Late st Contact Info) Description 06/04/2017 Orders Only [facility] Provider, MD Antonio [address] [place] [address] Social History Tobacco Use Types Packs/Day [...] on filedocumented in this encounter Care Teams Bean Viner Relationship Specialty Start Date End Date Jerri Velez MD PCP - General 04/04/17 06/08/17 Be Soler MD [address] [address] PCP - General 06/09/17 06/12/17 Jerri Velez MD PCP - General 06/13/17 06/19/17 Be Soler MD [address] [place] [address] PCP - General 06/20/17 07/11/17 Jerri Velez MD PCP - General 07/12/17 08/09/17 Be Soler MD [address] [place], [place] [address] PCP - General 08/10/17 10/16/17 Jerri Velez MD PCP - General Family Practice 10/17/17 05/29/23 Jerri Velez MD [address] [place] [address] PCP - [facility] Family Practice 05/30/23 Carloz Ace MD 4927 [facility] [address] [place] [address] Medical Oncologist/Hematologis t Medical Oncology 08/09/17 Jonathan Rosario MD 4921 [facility] [address] [place] [address] Referring Physician Colon and Rectal Surgery 08/09/17 Catalina Tan MD PhD 49[address] [facility] [address] [place] [address] Surgeon Transplant 08/09/17 Derek Mora MD [address] [facility] [address] [place] [address] Consulting Physician Transplant 08/09/17 Fanta Chauhan, SOPHY [address] [facility] [address] [place] [address] Heart Failure Coordinator Transplanter Orchid 10/31/17 Jerri Velez MD Referring Physician Family Practice 12/18/18 Renetta Duensa, RN Registered Nurse Transplanter Orchid 08/07/19 documented as of this encounter
--- OUTSIDE RECORDS SUMMARY | 2024-05-21 08:50 | XMS_ITS ---
Author Organization [facility] Address [address] [place] [address] Care Team Providers Care Procurement Intern Name Role Phone Carloz Ace MD Unavailable Jonathan Rosario MD Unavailable [phone] Catalina Tan MD PhD Unavailable [phone] Derek Mora MD Unavailable [phone] Fanta Chauhan RN Unavailable [phone] Jerri Velez MD Unavailable + [phone] Renetta Duenas RN Unavailable [phone] Jerri Velez MD Primary Care Provider Transplant Episode Heart Candidate [facility] ([place], [place]) - [facility] Referred on 10/18/2016 Marked as Ineligible on 12/13/2017 Heart CoordinatorHistorical ProviderMD Fax: N/A Email: N/A Care Team Name Role Phone Fax Email Historical MD Ludwig Business Communications Instructor [phone] N/A N/A Events Pre-Transplant Referred: 10/18/2016
--- OUTSIDE RECORDS SUMMARY | 2024-05-21 08:50 | XMS_ITS | Encounter Summary ---
Author Organization [facility] Address [address] [place] [address] Phone Care Team Providers Care Calendar Control Clerk Blood Bank Name Role Phone Jerri Velez MD Primary Care Provider Be Soler MD Primary Care Provider + [phone] Jerri Velez MD Primary Care Provider eB Soler MD Primary Care Provider + [phone] Jerri Velez MD Primary Care Provider Carloz Ace MD Unavailable +[phone] Jonathan Rosario MD Unavailable +[phone] Catalina Tan MD PhD Unavailable [phone] Derek Mora MD Unavailable [phone] Be Soler MD Primary Care Provider + [phone] Jerri Velez MD Primary Care Provider Fanta Chauhan RN Unavailable +[phone] Jerri Velez MD Unavailable + [phone] Renetta Duenas RN Unavailable [phone] Jerri Velez MD Primary Care Provider Encounter Details Date Type Department Care Team (Late st Contact Info) Description 05/07/2017 Orders Only [facility] Provider, MD Antonio [address] [place] [id number] Social History Tobacco Use Types Packs/Day Years [...] on filedocumented in this encounter Care Teams Calendar Control Clerk Blood Bank Relationship Specialty Start Date End Date Jerri Velez MD PCP - General 04/04/17 06/08/17 Be Soler MD [address] [place] [address] PCP - General 06/09/17 06/12/17 Jerri Velez MD PCP - General 06/13/17 06/19/17 Be Soler MD [address] [place] [address] PCP - General 06/20/17 07/11/17 Jerri Velez MD PCP - General 07/12/17 08/09/17 Be Soler MD [address] [place] [address] PCP - General 08/10/17 10/16/17 Jerri Velez MD PCP - General Family Practice 10/17/17 05/29/23 Jerri Velez MD [address] [place] [address] [address] PCP - General Family Practice 05/30/23 Carloz Ace MD [address] [place] [address] Medical Oncologist/Hematologis t Medical Oncology 08/09/17 Jonathan Rosario MD [address] [place] [address] Referring Physician Colon and Rectal Surgery 08/09/17 Catalina Tan MD PhD [address] [place] [address] Surgeon Transplant 08/09/17 Derek Mora MD [address] [place] [address] Consulting Physician Transplant 08/09/17 Fanta Chauhan, SOPHY 45[address] [facility] [address] [place] [address] Heart Failure Coordinator Firer Kiln 10/31/17 Jerri Velez MD Referring Physician Family Practice 12/18/18 Renetta Duenas RN Registered Nurse Firer Kiln 08/07/19 documented as of this encounter
--- OUTSIDE RECORDS SUMMARY | 2024-05-21 08:50 | XMS_ITS | Clinical Summary ---
Author Organization [facility] Address [facility] [place] [address] Care Team Providers Care Home Performance Consultant Name Role Phone Unavailable Primary Care Provider [...] 07/05/2013 COVID-19 Vaccine (2023-2 5 season) 2023 RSV Immunization or 60+ Years (1 [...] patient's age to complete this topic [place] [address]
--- OUTSIDE RECORDS SUMMARY | 2024-05-21 08:50 | XMS_ITS | Encounter Summary ---
Author Organization [facility] Address [address] [place] [address] Phone Care Team Providers Care Passenger Relations Representative Name Role Phone Jerri Velez MD Primary Care Provider Be Soler MD Primary Care Provider + [phone] Jerri Velez MD Primary Care Provider Be Soler MD Primary Care Provider + [phone] Jerri Velez MD Primary Care Provider Carloz Ace MD Unavailable +[phone] Jonathan Rosario MD Unavailable +[phone] Catalina Tan MD PhD Unavailable +[phone] Derek Mora MD Unavailable +[phone] Be Soler MD Primary Care Provider + [phone] Jerri Velez MD Primary Care Provider Fanta Chauhan RN Unavailable +[phone] Jerri Velez MD Unavailable + [phone] Renetta Duenas RN Unavailable [phone] Jerri Velez MD Primary Care Provider Encounter Details Date Type Department Care Team (Late st Contact Info) Description 05/31/2017 Orders Only [facility] CLINCONV Provider, MD Antonio [address] [place] [address] [id number] Social History Tobacco Use Types Packs/Day Years [...] on filedocumented in this encounter Care Teams Passenger Relations Representative Relationship Specialty Start Date End Date Jerri Velez MD PCP - General 04/04/17 06/08/17 Be Soler MD [address] [place] [address] [place] [address] PCP - General 06/09/17 06/12/17 Jerri Velez MD PCP - General 06/13/17 06/19/17 Be Soler MD [address] [place] [address] PCP - General 06/20/17 07/11/17 Jerri Velez MD PCP - General 07/12/17 08/09/17 Be Soler MD [address] [place] [address] PCP - General 08/10/17 10/16/17 Jerri Velez MD PCP - General Family Practice 10/17/17 05/29/23 Jerri Velez MD [address] [place] [address] [address] PCP - General Family Practice 05/30/23 Carloz Ace MD [address] [place] [address] Medical Oncologist/Hematologis t Medical Oncology 08/09/17 Jonathan Rosario MD [address] [place] [address] Referring Physician Colon and Rectal Surgery 08/09/17 Catalina Tan MD PhD [address] [place] [address] Surgeon Transplant 08/09/17 Derek Mora MD [address] [place] [address] Consulting Physician Transplant 08/09/17 Fanta Chauhan, SOPHY [address] [facility] [address] [place] [address] Heart Failure Coordinator Emergency Medicine Physician Assistant 10/31/17 Jerri Velez MD Referring Physician Family Practice 12/18/18 Renetta Duenas RN Registered Nurse Emergency Medicine Physician Assistant 08/07/19 documented as of this encounter
--- OUTSIDE RECORDS SUMMARY | 2024-05-21 08:50 | XMS_ITS | Clinical Summary ---
Author Organization [facility] Address [address] [place] [address] Care Team Providers Care Enrollment Eligibility Representative Name Role Phone Carloz Ace MD Unavailable Jonathan Rosario MD Unavailable Catalina Tan MD PhD Unavailable Derek Mora MD Unavailable Fanta Chauhan RN Unavailable [phone] Jerri Velez MD Unavailable [phone] Renetta Duenas RN Unavailable Jerri Velez MD [...] Please follow the instructions provided by your [facility] GI office. For any questions call [phone]. 24 tablet 03/27/19 24 Active Entresto 97-103 [...] CDT): History of ischemic cardiomyopathy s/p medtronic ASSEMBLY HAND-D implanted initially for primary prevention therapy. He [...] CDT): History of ischemic cardiomyopathy s/p medtronic ASSEMBLY HAND-D implanted initially for primary prevention therapy. He [...] CDT): History of ischemic cardiomyopathy s/p medtronic ASSEMBLY HAND-D implanted initially for primary prevention therapy. He [...] disease) 12/05/2017 Overview (12/05/2017): Cardiac catheterization at [facility] in [place] showed an 80% distal left main coronary [...] monitor on telemetry, daily weights Ischemic stroke ([facility]) 12/05/2017 Overview (12/05/2017): Ischemic stroke with right eye gaze palsy and left upper and lower extremity weakness with MRI showing xzmnj-vi-fwnjiurj infarcts within the right cerebral peduncle and [...] without residual deficits DVT (deep venous thrombosis) ([facility]) 8 Overview (12/05/2017): -Deep venous thrombosis of [...] Continue eliquis Cardiac resynchronization th erapy defibrillator (ASSEMBLY HAND-D) in place 12/05/2017 Overview (12/05/2017): Status post ASSEMBLY HAND-D implanted 04/03/[address] Nitin Fabian. Device [...] Overview (12/05/2017): Initial creatinine on transfer to [facility] was 1.66; this jerome to a peak of 3.09 and ultimately normalized Encounters Date Type Department Care Team Description 05/15/2024 8:00 AM CDT Ancillary Procedure [facility] Cardiology [address] [place] [id number] [phone] Cardiomyopathy, ischemic 04/10/2024 8:00 AM FAST FOOD SERVICES MANAGER Ancillary Procedure [facility] Cardiology [address] [facility] [address] [place] [address] Cardiomyopathy, ischemic 03/11/2024 Orders Only [facility] Cardiology [address] [facility] Medical Office Building [address] [place] [address] Johnathon Fabian MD PhD 03/06/2024 8:00 AM FAST FOOD SERVICES MANAGER Ancillary Procedure [facility] Cardiology [address] [facility] [address] [place] [address] Cardiomyopathy, ischemic from Last 3 Months Immunizations [...] 40 mL intra-aortic balloon pump through 8- Yoruba sheath. 5. Use of fluoroscopy for intra-aortic [...] (cerebrum) (HCC) 11/05/2016 CHF (congestive heart failure) ([facility]) 03/2017 s/p biventricular Medtronic Quad ASSEMBLY HAND-D DVT (deep venous thrombosis) ([facility]) 11/2016 s/p IVC filter Type 2 diabetes mellitus (HCC) Colon polyp Pacemaker 2016 Family History Medical History Relation Name Comments [...] history exists Medical Devices Implanted Type Area Dictaphone Mechanic Device Identifier Shelf Expiration Date Model / Serial / Lot Icd-04/03/2017 Implanted:04/03 by Johnathon Fabian MD PhD (Quantity not on file) ICD Chest Medtronic Cardiac Rhythm Mgmt [id number] / [id number] / Lead (Lv)-04/03/2017 Implanted:04/03 by Johnathon Fabian MD PhD (Quantity not on file) Lead Heart Medtronic Cardiac Rhythm Mgmt 4598/78 / [id number] / Lead (Ra)-04/03/2017 Implanted:04/03 by Johnathon Fabian MD PhD (Quantity not on file) Lead Heart Medtronic Cardiac Rhythm Mgmt 5076/52 / [id number] / Lead (Rv)-04/03/2017 Implanted:04/03 by Johnathon Fabian MD PhD (Quantity not on file) Lead Heart Medtronic Cardiac Rhythm Mgmt 6935M/55 / [id number] / Procedures Procedure Name Priority Date/Time Associated Diagnosis Comments HEART FAILURE DEVICE CHECK - REMOTE Routine 05/16/2024 12:24 PM CDT Cardiomyopathy, ischemic HEART FAILURE DEVICE CHECK - REMOTE Routine 04/10/2024 12:32 PM FAST FOOD SERVICES MANAGER Cardiomyopathy, ischemic DEVICE CHECK - REMOTE Routine 03/11/2024 6:38 AM FAST FOOD SERVICES MANAGER HEART FAILURE DEVICE CHECK - REMOTE Routine 03/06/2024 2:53 PM FAST FOOD SERVICES MANAGER Cardiomyopathy, ischemic EGFR Routine 07/16/2023 9:27 AM CDT Malignant neoplasm of sigmoid colon (HCC) COLONOSCOPY 04/12/2023 10:15 AM FAST FOOD SERVICES MANAGER HEMOGLOBIN A1C Timed 11/29/2021 5:56 AM CDT LIPID PANEL Routine 11/28/2021 9:38 PM CDT from Last 3 Months or Most Recently Relevant to Health Maintenance Results * Heart Failure Device Check - Remote (05/16/2024 12:24 PM CDT) Anatomical Region Laterality Modality Other Narrative 05/19/2024 10:57 AM CDT Cory Naomi Marycarmen [id number] 1965 Date of Service: 05/15/24 Referring Physician: Derek Mora Provider: Derek Mora Location: [address] [facility]-Heart Failure Monitoring Office Appt/Visit:@[email or web address]@ [facility]'s: [id number] REM ICV-P, G2066 REM ICV-T Diagnosis Code: I25.5 - Cardiomyopathy, Ischemic The Heart Failure/Cardiac Compass Report for the above date has been reviewed with the following results: Device Information: Medtronic ASSEMBLY HAND-D Ventricular Pacin.9% Fluid Index: OptiVol stable, remains [...] recommended: No action needed. Transmit as scheduled Sex Offender Treatment Professional: Barby Goel us Derek Mora MD CV CARDIAC SERVICES PROC EDURES Final Result * Heart Failure Device Check - Remote (04/10/2024 12:32 PM FAST FOOD SERVICES MANAGER) Anatomical Region Laterality Modality Other Narrative 04/11/2024 11:25 AM FAST FOOD SERVICES MANAGER Cory Conroy [id number] 1965 Date of Service: 04/10/24 Referring Physician: Derek Mora Billtheresa Provider: Derek Mora Location: [address] [facility]-Heart Failure Monitoring Office Appt/Visit:@[email or web address]@ [facility]'s: 12579 REM ICV-P, G2066 REM ICV-T Diagnosis Code: I25.5 - Cardiomyopathy, Ischemic The Heart Failure/Cardiac Compass Report for the above date has been reviewed with the following results: Device Information: Medtronic ASSEMBLY HAND-D Ventricular Pacin.9% Impedance: Optivol within normal range [...] recommended: No action needed. Transmit as scheduled Sex Offender Treatment Professional: Barby Goel us Derek Mora MD CV CARDIAC SERVICES PROC EDURES Final Result * DEVICE CHECK - REMOTE (03/11/2024 6:38 AM FAST FOOD SERVICES MANAGER) Anatomical Region Laterality Modality Other 03/11/2024 6:38 AM FAST FOOD SERVICES MANAGER Narrative 04/17/2024 9:14 PM FAST FOOD SERVICES MANAGER Interpretation Summary: Battery and Leads (BL) Less than 1 year of battery longevity noted Normal parameters noted on battery and lead(s) --- 10 months remaining longevity (implanted 2017). Lead impedance, sensing, and threshold trends stable and appropriate. No short V-V intervals. Presenting Rhythm (MD) Atrial Sensing-Ventricular Pacing (-PASSENGER SERVICE MANAGER) --- /PASSENGER SERVICE MANAGER 73 to 75 bpm. Arrhythmic events (AE) [...] appropriate. No short V-V intervals. Presenting Rhythm (MD) Atrial Sensing-Ventricular Pacing (-PASSENGER SERVICE MANAGER) --- /PASSENGER SERVICE MANAGER 73 to 75 bpm. Arrhythmic events (AE) [...] Device Check - Remote (03/06/2024 2:53 PM FAST FOOD SERVICES MANAGER) Anatomical Region Laterality Modality Other Narrative 03/08/2024 8:46 AM FAST FOOD SERVICES MANAGER Cory Conroy [id number] 1965 Date of Service: 03/06/24 Referring Physician: Derek Mora Billtheresa Provider: Derek Mora Location: [address] [facility]-Heart Failure Monitoring Office Appt/Visit:@CSN@ CPT's: 30981 REM ICV-P, G2066 REM ICV-T Diagnosis Code: I25.5 - Cardiomyopathy, Ischemic The Heart Failure/Cardiac Compass Report for the above date has been reviewed with the following results: Device Information: Medtronic ASSEMBLY HAND-D Ventricular Pacin.9% Fluid Index: Optivol fluid ws [...] recommended: No action needed. Transmit as scheduled Sex Offender Treatment Professional: Barby Goel us Derek Mora MD CV [...] was last reviewed 2020. Testing performed by: [facility] at [facility], [place] [address] Blood 07/16/2023 9:27 AM CDT 07/16/2023 9:27 AM CDT us Ciara Gonzalez NP LAB BLOOD ORDERABLES Daily antunez Result MICHAEL [address] Department [place] [address] * Colonoscopy (04/12/2023 10:15 AM FAST FOOD SERVICES MANAGER) Anatomical Region Laterality Modality Other Narrative Procedure Note Rakesh Chacon MD - 04/12/2023 10:15 AM CST ENDOSCOPY LAB Patient Name: Cory Conroy Procedure Date: 04/12/2023 10:15 AM Admit Type: Outpatient Room: [facility] Date of : 1965 Instrument Name:[id number] Gender: [...] A1C 7.1(H) 4.0 - 5.6 % [facility] Estimated Average Glucose 157 mg/dL [facility] Comment: The ADA recommends reporting an estimated [...] LAB BLOOD ORDERABLE S Final Result [facility] Department [place] [address] * (ABNORMAL) Lipid panel (11/28/2021 9:38 PM CDT) Cholesterol 94 30 - 199 mg/dL [facility] Comment: Interpretive Data Ages < or [...] on 2017. Triglycerides 71 <=149 mg/dL [facility] Comment: Interpretive Data Ages < or [...] Pediatrics 2011;128:S213 2. NCEP Expert Panel. Circulation 2003;110:227 Current Interpretive Data was last revised on 2017. HDL 39(L) >=40 mg/dL [facility] Comment: Interpretive Data Ages < or = 19 years Acceptable: >45 mg/dL Borderline low: 40-45 mg/dL Low: <40 mg/dL Ages > or = 20 years Desirable: >or= 60 mg/dL Low: <40 mg/dL Literature References: 1. Expert Panel on Integrated Guidelines for Cardiovascular Health and Risk Reduction in Children and Adolescents. Pediatrics 2011;128:S213 2. NCEP Expert Panel. Circulation 2003;110:227 Current Interpretive Data was last revised on 2017. LDL, calculated 41 <=129 mg/dL [facility] Comment: Interpretive Data Ages < or [...] on 2017. Non-HDL Cholesterol 55 mg/dL [facility] Comment: Interpretive Data Ages [...] last revised on 2017. Chol/HDL ratio 2 [facility] Blood 11/28/2021 9:38 PM CDT 11/28/2021 10:19 PM CDT us Johnathon Fabian MD PhD LAB BLOOD ORDERABLE S Final Result [facility] Department [place] [address] from Last 3 Months or Most Recently Relevant to Health Maintenance Insurance [facility] IDPA AETNA CARE OTHER BL CHO[place] Advance Directives For more information, please contact: [phone] Documents on File Type Date Recorded Patient Reset Merchandiser Expl anation ADVANCE DIRECTIVE 04/09/2017 12:00 AM [...] 10:38 AM 11/01/2017 3:24 PM Care Teams Enrollment Eligibility Representative Relationship Specialty Start Date End Date Jerri Velez MD [address] [place] [address] [address] [place] [address] PCP - General Family Practice 05/30/23 Carloz Ace MD [facility] [facility] [address] [place] [address] Medical Oncologist/Gas Analyst Medical Oncology 08/09/17 Jonathan Rosario MD [facility] [facility] [address] [place] [address] Referring Physician Colon and Rectal Surgery 08/09/17 Catalina Tan MD PhD [id number] [place] [address] Surgeon Transplant 08/09/17 Derek Mora MD [address] [facility] [address] [place] [address] Consulting Physician Transplant 08/09/17 Fanta Chauhan, SOPHY [address] [facility] [address] [place] [address] Heart Failure Coordinator Supervisor Scenic Arts 10/31/17 Jerri Velez MD [address] [facility] [address] [place] [address] Referring Physician Family Practice 12/18/18 Renetta Duenas, SOPHY Registered Nurse Supervisor Scenic Arts 08/07/19
[2024-05-21 12:25] LABS: Anion Gap 9 mmol/L (4-12); Blood Urea Nitrogen 17 mg/dL (9-20); Calcium 8.8 mg/dL (8.4-10.2); Carbon Dioxide 28 mmol/L (22-30); Chloride 101 mmol/L (98-107); Estimated Glomerular Filt Rate > 60; Glucose 202 mg/dL (65-110); Potassium 4.2 mmol/L (3.4-5.0); Sodium 138 mmol/L (137-145)
== END 2024-05-21 08:30 | disposition home or self-care (01) ==
LOC: ANHGOSHLAB 08:30
PROVIDERS: PCP Family Medicine; Visit Provider Nurse Practitioner Family
DX: E87.5 Hyperkalemia (principal)
CPT/HCPCS: 36415; 80048

== ENCOUNTER 2024-11-25 09:29 | Outpatient (CLI) | payer BC, SELFPAY ==
--- OUTSIDE RECORDS SUMMARY | 2024-11-25 10:41 | XMS_ITS | Encounter Summary ---
Author Organization [facility] Address [address] [place] [address] Phone Care Team Providers Care Product Applications Scientist Name Role Phone Jerri Velez MD Primary Care Provider Be Soler MD Primary Care Provider + [phone] Jerri Velez MD Primary Care Provider Be Soler MD Primary Care Provider + [phone] Jerri Velez MD Primary Care Provider Carloz Ace MD Unavailable [phone] Jonathan Rosario MD Unavailable [phone] Catalina Tan MD PhD Unavailable [phone] Derek Mora MD Unavailable [phone] Be Soler MD Primary Care Provider + [phone] Jerri Velez MD Primary Care Provider Fanta Chauhan RN Unavailable [phone] Jerri Velez MD Unavailable + [phone] Renetta Duenas RN Unavailable [phone] Jerri Velez MD Primary Care Provider Danica Lea Unavailable Unavailable Encounter Details Date Type Department Care Team (Late st Contact Info) Description 05/31/2017 Orders Only [facility] CLINCONV Provider, MD Antonio [address] [place], [place] [address] Social History Tobacco Use Types Packs/Day Years [...] filedocumented in this encounter Care Teams Product Applications Scientist Relationship Specialty Start Date End Date Jerri Velez MD PCP - General 04/04/17 06/08/17 Be Soler MD [place] [place] [address] PCP - General 06/09/17 06/12/17 Jerri Velez MD PCP - General 06/13/17 06/19/17 Be Soler MD [address] [place] [address] PCP - General 06/20/17 07/11/17 Jerri Velez MD PCP - General 07/12/17 08/09/17 Be Soler MD [address] [place] [address] PCP - General 08/10/17 10/16/17 Jerri Velez MD PCP - General Family Practice 10/17/17 05/29/23 Jerri Velez MD [address] [place] [address] [address] PCP - General Family Practice 05/30/23 Carloz Ace MD [address] [facility] [address] [place] [address] Medical Oncologist/Tibco Developer Medical Oncology 08/09/17 Jonathan Rosario MD [address] [facility] [address] [place] [address] Referring Physician Colon and Rectal Surgery 08/09/17 Catalina Tan MD PhD [address] [place] [address] Surgeon Transplant 08/09/17 Derek Mora MD [address] [facility] [address] [place] [address] Donor Relations Associate Transplant 08/09/17 Fanta Chauhan, RN [address] [facility] [address] [place] [address] Heart Failure Coordinator Rougher Operator 10/31/17 Jerri Velez MD Referring Physician Family Practice 12/18/18 Renetta Duenas, SOPHY Registered Nurse Rougher Operator 08/07/19 Danica Lea Primary Control Systems Engineer 10/30/24 documented as of this encounter
--- OUTSIDE RECORDS SUMMARY | 2024-11-25 10:41 | XMS_ITS ---
Author Organization [facility] Address [address] [place] [address] Care Team Providers Care Marketing Engineer Name Role Phone Carloz Ace MD Unavailable Jonathan Rosario MD Unavailable [phone] Catalina Tan MD PhD Unavailable [phone] Derek Mora MD Unavailable [phone] Fanta Chauhan RN Unavailable [phone] Jerri Velez MD Unavailable + [phone] Renetta Duenas RN Unavailable [phone] Jerri Velez MD Primary Care Provider Danica Lea Unavailable Unavailable Transplant Episode Heart Candidate [facility] ([place], [place]) - [facility] Referred on 10/18/2016 Marked as Ineligible on 12/13/2017 Heart CoordinatorHistorical ProviderMD Fax: N/A Email: N/A Care Team Name Role Phone Fax Email Historical MD Ludwig Diploma Medical Assistant [phone] N/A N/A Events Pre-Transplant Referred: 10/18/2016
--- OUTSIDE RECORDS SUMMARY | 2024-11-25 10:41 | XMS_ITS | Encounter Summary ---
Author Organization [facility] Address [address] [place] [address] Care Team Providers Care Structural Engineering Project Manager Name Role Phone Carloz Ace MD Unavailable Jonathan Rosario MD Unavailable Catalina Tan MD PhD Unavailable [phone] Derek Mora MD Unavailable +[phone] Jerri Velez MD Primary Care Provider Fanta Chauhan RN Unavailable [phone] Jerri Velez MD Unavailable +[phone] Renetta Duenas RN Unavailable [phone] Jerri Velez MD Primary Care Provider Danica Lea Unavailable Unavailable Encounter Details Date Type Department Care Team (Late st Contact Info) Description 08/16/2021 Telephone [facility] Transplant Heart [address] [facility] [address] [phone] [place] [address] Milli Fang Social History Tobacco [...] on filedocumented in this encounter Care Teams Structural Engineering Project Manager Relationship Specialty Start Date End Date Jerri Velez MD [address] [facility] [address] [place] [address] PCP - General Family Practice 10/17/17 05/29/23 Jerri Velez MD [address] [place] [address] PCP - General Family Practice 05/30/23 Carloz Ace MD [address] [facility] [address] [place] [address] Medical Oncologist/Packing And Stamping Machine Operator Medical Oncology 08/09/17 Jonathan Rosario MD [address] [facility] [address] [place] [address] Referring Physician Colon and Rectal Surgery 08/09/17 Catalina Tan MD PhD [address] [facility] [address] [place] [address] Surgeon Transplant 08/09/17 Derek Mora MD [address] [facility] [address] [place] [address] Med Aide Transplant 08/09/17 Fanta Chauhan RN [address] [place] [address] Heart Failure Coordinator Juvenile Officer 10/31/17 Jerri Velez MD [address] [facility] [address] [place] [address] Referring Physician Family Practice 12/18/18 Renetta Duenas RN Registered Nurse Juvenile Officer 08/07/19 Danica Lea Primary Wash Operator 10/30/24 documented as of this encounter
--- OUTSIDE RECORDS SUMMARY | 2024-11-25 10:41 | XMS_ITS | Encounter Summary ---
Author Organization [facility] Address [address] [place] [address] Phone Care Team Providers Care Voip Network Engineer Name Role Phone Jerri Velez MD Primary Care Provider Be Soler MD Primary Care Provider + [phone] Jerri Velez MD Primary Care Provider Be Soler MD Primary Care Provider + [phone] Jerri Velez MD Primary Care Provider Carloz Ace MD Unavailable [phone] Jonathan Rosario MD Unavailable [phone] Catalina Tan MD PhD Unavailable [phone] Derek Mora MD Unavailable [phone] Be Soler MD Primary Care Provider + [phone] Jerri Velez MD Primary Care Provider Fanta Chauhan RN Unavailable [phone] Jerri Velez MD Unavailable + [phone] Renetta Duenas RN Unavailable [phone] Jerri Velez MD Primary Care Provider Danica Lea Unavailable Unavailable Encounter Details Date Type Department Care Team (Late st Contact Info) Description 06/04/2017 Orders Only [facility] CLINCONV Provider, MD Antonio [address] [place], [place] [address] Social History Tobacco Use Types Packs/Day Years [...] on filedocumented in this encounter Care Teams Voip Network Engineer Relationship Specialty Start Date End Date Jerri Velez MD PCP - General 04/04/17 06/08/17 Be Soler MD [address] [place] [address] PCP - General 06/09/17 06/12/17 Jerri Velez MD PCP - General 06/13/17 06/19/17 Be Soler MD [address] [place] [address] PCP - General 06/20/17 07/11/17 Jerri Velez MD PCP - General 07/12/17 08/09/17 Be Soler MD [address] [place] [address] PCP - General 08/10/17 10/16/17 Jerri Velez MD PCP - General Family Practice 10/17/17 05/29/23 Jerri Velez MD [address] [place] [address] PCP - General Family Practice 05/30/23 Carloz Ace MD [address] [facility] [address] [place] [address] Medical Oncologist/Director Of Career Resources Medical Oncology 08/09/17 Jonathan Rosario MD [address] [facility] [address] [place] [address] Referring Physician Colon and Rectal Surgery 08/09/17 Catalina Tan MD PhD [address] [facility] [address] [place] [address] Surgeon Transplant 08/09/17 Derek Mora MD [address] [facility] [address] [place] [address] Family Law Legal Assistant Transplant 08/09/17 Fanta Chauhan, RN 4590 [facility] [address] [place] [address] Heart Failure Coordinator Operations Scheduler 10/31/17 Jerri Velez MD Referring Physician Family Practice 12/18/18 Renetta Duenas, RN Registered Nurse Operations Scheduler 08/07/19 Danica Lea Primary Cashier Parking Lot 10/30/24 documented as of this encounter
--- OUTSIDE RECORDS SUMMARY | 2024-11-25 10:41 | XMS_ITS | Encounter Summary ---
Author Organization [facility] Address [address] [place] [address] Phone Care Team Providers Care Account Analyst Name Role Phone Jerri Velez MD Primary Care Provider Be Soler MD Primary Care Provider + [phone] Jerri Velez MD Primary Care Provider Be Soler MD Primary Care Provider + [phone] Jerri Velez MD Primary Care Provider Carloz Ace MD Unavailable +[phone] Jonathan Rosario MD Unavailable [phone] Catalina Tan MD PhD Unavailable [phone] Derek Mora MD Unavailable [phone] Be Soler MD Primary Care Provider + [phone] Jerri Velez MD Primary Care Provider Fanta Chauhan RN Unavailable +[phone] Jerri Velez MD Unavailable + [phone] Renetta Duenas RN Unavailable [phone] Jerri Velez MD Primary Care Provider Danica Lea Unavailable Unavailable Encounter Details Date Type Department Care Team (Late st Contact Info) Description 04/04/2017 Orders Only [facility] Provider, MD [address] [place], [place] [address] Social History Tobacco Use Types Packs/Day Years [...] on filedocumented in this encounter Care Teams Account Analyst Relationship Specialty Start Date End Date Jerri Velez MD PCP - General 04/04/17 06/08/17 Be Soler MD [address] [place] [address] PCP - General 06/09/17 06/12/17 Jerri Velez MD PCP - General 06/13/17 06/19/17 Be Soler MD [address] [place] [address] PCP - General 06/20/17 07/11/17 Jerri Velez MD PCP - General 07/12/17 08/09/17 Be Soler MD [address] [place] [id number] PCP - General 08/10/17 10/16/17 Jerri Velez MD PCP - General Family Practice 10/17/17 05/29/23 Jerri Velez MD [address] [place] [address] [address] PCP - General Family Practice 05/30/23 Carloz Ace MD [address] [facility] [address] [place] [address] Medical Oncologist/[facility] Medical Oncology 08/09/17 Jonathan Rosario MD [address] [facility] [address] [place] [address] Referring Physician Colon and Rectal Surgery 08/09/17 Catalina Tan MD PhD [address] [facility] [address] [place] [address] Surgeon Transplant 08/09/17 Derek Mora MD [address] [facility] [address] [place] [address] Veterinary Technician Instructor Transplant 08/09/17 Fanta Chauhan, SOPHY [address] [facility] [address] [place] [address] Heart Failure Coordinator [place] 10/31/17 Jerri Velez MD Referring Physician Family Practice 12/18/18 Renetta Duenas, RN Registered Nurse [place] 08/07/19 Danica Lea Primary Chief Operator Reformer 10/30/24 documented as of this encounter
--- OUTSIDE RECORDS SUMMARY | 2024-11-25 10:41 | XMS_ITS | Clinical Summary ---
Author Organization [facility] Address [address] [place] [id number] Care Team Providers Care Rheumatology Nurse Name Role Phone Carloz Ace MD Unavailable Jonathan Rosario MD Unavailable Catalina Tan MD PhD Unavailable Jared Castro MD Unavailable Fanta Chauhan RN Unavailable Jerri Velez MD Unavailable Renetta Duenas RN Unavailable Jerri Velez MD Primary Care Provider Danica Lea Unavailable Unavailable Allergies No known active allergies Medications spironolactone (ALDACTONE) 25 mg tablet daily. 7 Active atorvastatin (LIPITOR) 80 mg tablet TAKE 1 TABLET AT BEDTIME. Active hydrOXYzine (ATARAX) 25 mg tablet TAKE 1 TABLET 4 TIMES DAILY NEEDED. Active dapagliflozin (FARXIGA) 10 mg tablet 1 tablet (10 mg total) daily Active cyanocobalamin- salcaprozat sod 1,000-100 mcg-mg tablet Take by mouth Ac tive glipiZIDE XL (GLUCOTROL XL) 10 mg 24 hr tablet Take 1 tablet (10 mg total) by mouth daily 2 tablets 3 Active metFORMIN XR (GLUCOPHAGE XR) 500 mg 24 hr tablet Take 4 tablets (2,000 mg total) by mouth daily with breakfast 3 Active rOPINIRole (REQUIP) 2 mg tablet Take 1.5 tablets (3 mg total) by mouth nightly 3 Active Ozempic 1 mg/dose (4 mg/3 mL) pen injector injection Inject 1 mg under the skin once a week 3 Active sod sulf-pot chloride-mag sulf 1.479-0.188- 0.225 gram tablet Please follow the instructions provided by your [facility] GI office. For any questions call [phone]. 24 tablet 4 Active sertraline (ZOLOFT) 25 mg tablet Take 1 tablet (25 mg total) by mouth daily 4 Active furosemide (LASIX) 20 mg tablet TAKE ONE TABLET BY MOUTH DAILY 90 tablet 3 5 Active Eliquis 5 mg tablet TAKE ONE TABLET BY MOUTH TWICE A DAY 60 tablet 11 5 Active metoprolol XL (TOPROL-XL) 100 mg 24 hr tablet TAKE ONE AND A HALF TABLETS BY MOUTH DAILY 135 tablet 3 5 Active clopidogreL (PLAVIX) 75 mg tablet TAKE ONE TABLET BY MOUTH DAILY 90 tablet 3 5 Active sotaloL (BETAPACE) 120 mg tablet TAKE ONE TABLET BY MOUTH TWICE A DAY 180 tablet 1 5 Active Entresto 97-103 mg tablet TAKE ONE TABLET BY MOUTH TWICE A DAY 60 tablet 3 5 Active Active Problems Problem Noted Date Diagnosed Date Encounter for colonoscopy du e to history of adenomatous colonic polyps 03/27/2023 VT (ventricular tachycardia) 11/28/2021 Assessment & Plan (12/01/2021 10:28 AM CDT): History of ischemic cardiomyopathy s/p medtronic MANAGER TRAVEL-D implanted initially for primary prevention therapy. He [...] CDT): History of ischemic cardiomyopathy s/p medtronic MANAGER TRAVEL-D implanted initially for primary prevention therapy. He [...] CDT): History of ischemic cardiomyopathy s/p medtronic MANAGER TRAVEL-D implanted initially for primary prevention therapy. He [...] disease) 12/05/2017 Overview (12/05/2017): Cardiac catheterization at [facility] in [place] showed an 80% distal left main coronary [...] atorvastatin 80mg, metoprolol Cardiomyopathy, ischemic 12/05/2017 Overview (09/11/2024): TTE before hospital discharge on 11/14/2016 showed an LVEF of 16%. TTE 02/2017 = 20% S/p CRTD 03/2017 TTE June 13 LVEF 30% with large apical akinetic segmen TTE July 2019 LVEF ~ 30% with apical akinesis - foreshortened images on 2D TTE July 2020 LVEF 30%, LVIDD 5.4 cm TTE August 2022 LVEF 25-30%, LVIDD 6 cm TTE August 2024 LVEF 25-30% LVIDD 5.4 cm, akinetic segments unchanged Assessment & Plan (12/01/2021 10:29 AM CDT): Chronic systolic/diastolic HFrEF. History of cardiogenic shock and impella assisted angioplasty of the distal left circumflex, LAD, and LM. LVEF as low as 16% in past, now with recovery to LVEF 30% on most recent echo from 2020. Follows with Dr. Castro. -Continue home GDMT including: high dose entresto, [...] recent echo from 2020. Follows with Dr. Castro. -Continue home GDMT including: high dose entresto, [...] recent echo from 2020. Follows with Dr. Castro. - Continue home GDMT including high dose entresto, metoprolol 150 XL, farxiga 10mg, and spironolactone 25 daily - Currently euvolemic and well compensated - Accurate I&O, monitor on telemetry, daily weights Ischemic stroke ([facility]) 12/05/2017 Overview (12/05/2017): Ischemic stroke with right eye gaze palsy and left upper and lower extremity weakness with MRI showing [id number] infarcts within the right cerebral peduncle and [...] without residual deficits DVT (deep venous thrombosis) ([facility]) 8 Overview (12/05/2017): -Deep venous thrombosis [...] Continue eliquis Cardiac resynchronization th erapy defibrillator (MANAGER TRAVEL-D) in place 12/05/2017 Overview (12/05/2017): Status post MANAGER TRAVEL-D implanted 04/03/[address] Nitin Fabian. Device [...] (12/05/2017): Initial creatinine on transfer to [facility] was 1.66; this jerome to a peak of 3.09 and ultimately normalized Encounters Date Type Department Care Team Description 11/13/2024 8:00 AM CDT Ancillary Procedure [facility] Medicine Cardiology [address] [address] Cardiomyopathy, ischemic 09/09/2024 Telephone [facility] Cardiology [address] [facility] 8th [place] [address] [place] [address] Johnathon Fabian MD PhD 09/06/2024 Orders Only [facility] Cardiology [address] [facility] Medical Office Building [address] [place] [address] Sarahy Fortune MD 08/28/2024 8:00 AM CDT Ancillary Procedure [facility] Cardiology [address] [facility] [address] [place] [address] Cardiomyopathy, ischemic 08/27/2024 9:45 AM CDT Office Visit [facility] Cardiology [facility] [facility] 8th [place] [address] [place] [address] Jared Castro MD Coronary artery disease involving sioux heart without angina pectoris, unspecified vessel or lesion type (Primary Dx); Cardiomyopathy, ischemic; Chronic systolic (congestive) heart failure (HCC); VF (ventricular fibrillation) (HCC); VT (ventricular tachycardia) (HCC) 08/27/2024 8:14 AM CDT - 08/27/2024 11:59 PM CDT Hospital Encounter [facility] Cardiac Diagnostic Lab [address] [facility] [address] [place] [address] Cardiomyopathy, ischemic; Chronic systolic (congestive) heart failure (HCC) Discharge Disposition: Discharge to home or self care from Last 3 Months Immunizations Immunization Administration [...] 40 mL intra-aortic balloon pump through 8- Iranian sheath. 5. Use of fluoroscopy for intra-aortic [...] attack (HCC) 10/17/2016 cardiogenic s hock Diabetes 1997 Stroke (cerebrum) 11/05/2016 CHF (congestive heart failure) (HCC) 03/2017 s/p biventricular Medtronic Quad MANAGER TRAVEL-D DVT (deep venous thrombosis) 11/2016 s/p IVC filter Type 2 diabetes mellitus Colon polyp Pacemaker 2016 Family History Medical [...] Sign Reading Time Taken Comments Blood Pressure 103/71 08/27/2024 9:39 AM CDT Pulse 60 08/27/2024 9:39 AM CDT Temperature 36.2 C (97.2 F) 07/28/2024 11:10 AM CDT Respiratory Rate 18 07/28/2024 11:10 AM CDT Oxygen Saturation 100% 08/27/2024 9:39 AM CDT Inhaled Oxygen Concentration - - Weight 84.8 kg (187 lb) 08/27/2024 9:39 AM CDT Height 175.3 cm (5' 9) 08/27/2024 9:39 AM CDT Body Mass Index 27.62 08/27/2024 9:39 AM CDT Plan of Treatment Health Maintenance [...] 03/15, 11/09/2016 Lipid Panel 11/28/2022 11/28/2021, 10/17/2016 Influenza Vaccine (#1) 2024 , 12/18/2018, 10/13/2016 eGFR 07/28/2025 07/28/2024, 06/0 04/2023, 07/24/2022, Additional history exists Colon Cancer Screening-Colonoscopy 04/11/2033 04/12/2023, 05/11/2021, 10/24/2018, Additional history exists Colon Cancer Screening-CT Colonography Discontinued 04/12/2023, 05/11/2021, 10/24/2018, Additional history exists Colon Cancer Screening-DNA Stool Discontinued 04/12/2023, 05/11/2021, 10/24/2018, Additional history exists Colon Cancer Screening-FIT Discontinued , 05/11/2021, 10/24/2018, Additional history exists Colon Cancer Screening-Sigmoidoscopy Discontinued 04/12/2023, 05/11/2021, 10/24/2018, Additional history exists Medical Devices Implanted Type Area Web Production Manager Device Identifier Shelf Expiration Date Model / Serial / Lot Icd-04/03/2017 Implanted:04/03 by Johnathon Fabian MD PhD (Quantity not on file) ICD Chest Medtronic Cardiac Rhythm Mgmt [id number] AMPILA / [id number] / Lead (Lv)-04/03/2017 Implanted:04/03 by Johnathon Fabian MD PhD (Quantity not on file) Lead Heart Medtronic Cardiac Rhythm Mgmt 4598/78 / [id number] / Lead (Ra)-04/03/2017 Implanted:04/03 by Johnathon Fabian MD PhD (Quantity not on file) Lead Heart Medtronic Cardiac Rhythm Mgmt 5076/52 / [id number] / Lead (Rv)-04/03/2017 Implanted:04/03 by Johnathon Fabian MD PhD (Quantity not on file) Lead Heart Medtronic Cardiac Rhythm Mgmt [id number]/55 / [id number] / Procedures Procedure Name Priority Date/Time Associated Diagnosis Comments HEART FAILURE DEVICE CHECK - REMOTE Routine 11/13/2024 12:15 PM CDT Cardiomyopathy, ischemic DEVICE CHECK - REMOTE Routine 09/06/2024 6:34 AM CDT HEART FAILURE DEVICE CHECK - REMOTE Routine 08/28/2024 12:58 PM CDT Cardiomyopathy, ischemic TRANSTHORACIC ECHO (TTE) COMPLETE W DOPPLER/CF W CONTRAST Routine 08/27/2024 9:32 AM CDT Cardiomyopathy, ischemic Chronic systolic (congestive) heart failure (HCC) EGFR Routine 07/28/2024 11:01 AM CDT Malignant neoplasm of sigmoid colon (CMS/HCC) (HCC) COLONOSCOPY 04/12/2023 10:15 AM MOLDING MACHINE OPERATOR HELPER HEMOGLOBIN A1C Timed 11/29/2021 5:56 AM CDT LIPID PANEL Routine 11/28/2021 9:38 PM CDT from Last 3 Months or Most Recently Relevant to Health Maintenance Results * Heart Failure Device Check - Remote (11/13/2024 12:15 PM CDT) Anatomical Region Laterality Modality Other Narrative 11/17/2024 7:14 AM CDT Images from the original result were not included. Cory Antunez Marycarmen [id number] 1965 Date of Service: 11/13/24 Referring Physician: Jared Castro Billing Provider: Jared Castro Location: [address] HF-Heart Failure Monitoring Office Appt/Visit:@[facility]@ CPT's: 35681 REM ICV-P, G2066 REM ICV-T Diagnosis Code: I25.5 - Cardiomyopathy, Ischemic The Heart Failure/Cardiac Compass Report for the above date has been reviewed with the following results: Device Information: Medtronic MANAGER TRAVEL-D Ventricular Pacin.8% Fluid Index: Optivol is within normal range Impedance: TI is variable, currently just below reference line Activity: decreased HRV: decreased Mean Heart Rate: not changed The following issues were identified: Mode switches: No Increased AF burden: No Decreased BiV pacing: No Shock/ATP received: No Increased V rate with AF: N/A Arrhythmia: No Increased V pacing: N/A The report revealed the following volume status: No change in volume status The following action is recommended: No action needed. Transmit as scheduled Battery Recharger: Katie Keane us Jared Castro MD CV CARDIAC SERVICES PROC EDURES Final Result * DEVICE CHECK - REMOTE (09/06/2024 6:34 AM CDT) Anatomical Region Laterality Modality Other 09/06/2024 6:34 AM CDT Narrative 09/30/2024 9:34 AM CDT Interpretation Summary: Battery and Leads (BL) Less than 6 months of battery longevity noted Normal parameters noted on battery and lead(s) --- 5 months remaining longevity (implanted 2017). Lead impedance, sensing, and threshold trends stable and appropriate. No short V-V intervals. Presenting Rhythm (HI) Atrial Sensing-Ventricular Pacing (-PIPE FITTER WELDING) --- /PIPE FITTER WELDING 70 bpm. Arrhythmic events (AE) No new arrhythmic events in monitoring period --- Since 05/27/24: No AHR or VHR episodes. Anticoagulation (AC) Patient on anticoagulant therapy Patient prescribed Apixaban (Eliquis) Transmission Information (TI) Device Summary Report Procedure Note Sarahy Fortune MD - 09/30/2024 Interpretation Summary: Battery and Leads (BL) Less than 6 months of battery longevity noted Normal parameters noted on battery and lead(s) --- 5 months remaininglongevity (implanted 2017). Lead impedance, sensing, and thresholdtrends stable and appropriate. No short V-V intervals. Presenting Rhythm (HI) Atrial Sensing-Ventricular Pacing (-PIPE FITTER WELDING) --- /PIPE FITTER WELDING 70 bpm. Arrhythmic events (AE) No new arrhythmic events in monitoring period --- Since 05/27/24: No AHRor VHR episodes. Anticoagulation (AC) Patient on anticoagulant therapy Patient prescribed Apixaban (Eliquis) Transmission Information (TI) Device Summary Report Sarahy Fortune MD CV CARDIAC SERVICES PROCEDURE S Final Result * Heart Failure Device Check - Remote (08/28/2024 12:58 PM CDT) Anatomical Region Laterality Modality Other Narrative 08/28/2024 1:36 PM CDT Cory Downey [id number] 1965 Date of Service: 08/28/24 Referring Physician: Jared Castro Billing Provider: Jared Castro Location: [address] HFM-Heart Failure Monitoring Office Appt/Visit:@CSN@ CPT's: 37776 REM ICV-P, G2066 REM ICV-T Diagnosis Code: I25.5 - Cardiomyopathy, Ischemic The Heart Failure/Cardiac Compass Report for the above date has been reviewed with the following results: Device Information: Medtronic MANAGER TRAVEL-D Ventricular Pacin.6%. Fluid Index: Optivol stable, remains below reference line. Impedance: not changed Activity: not changed HRV: not changed Mean Heart Rate: not changed The following issues were identified: Mode switches: no Increased AF burden: no Decreased BiV pacing: slight decrease was 97.5% with previous report. Shock/ATP received: No Increased V rate with AF: No Arrhythmia: No Increased V pacing: N/A The report revealed the following volume status: No change in volume status The following action is recommended: No action needed. Transmit as scheduled Battery Recharger: Caroline Fabian Authorjono Provider Result Type Result Stat us Jared Castro MD CV CARDIAC SERVICES PROC EDURES Final Result * TRANSTHORACIC ECHO (TTE) COMPLETE W DOPPLER/CF W CONTRAST (08/27/2024 9:32 AM CDT) EF Mod BP 28 % CONS SCIMAGE Anatomical Region Laterality Modality Ultrasound 08/27/2024 8:33 AM CDT Narrative 08/28/2024 8:23 AM CDT [facility] [place] [address] Transthoracic Echocardiographic Report Patient Name: CORY DOWNEY L : 1965 (59y 1m) Gender: M Study Date: 08/27/2024 08:33:40 AM Ht(Inch): 69 Wt(Lb): 184.97 BSA: 2.02 Wet End Tester: Rachel Rios RDCS Location: [facility] Order Provider: JARED CASTRO Heart Rate: 69 BMI: 27.31 BP: 116 / 69 Ref Provider: JARED CASTRO PROCEDURES: Echocardiographic Report: Transthoracic complete echo with strain imaging and contrast, 2D, spectral and tissue Doppler, color flow Doppler, M-mode. Contrast: Contrast Enhancement was Employed: After initial imaging due to sub- optimal quality related to co-morbidity defined by patient's body habitus and due to suboptimal image quality with inadequate visualization of at least 2 of 16 LV wall segments in any view after initial imaging. Perflutren contrast was administered using the volume necessary to obtain adequate images. 0.9 ml Optison Administered, (2.1 ml wasted). INDICATIONS: I25.5 Ischemic cardiomyopathy and I50.22 Chronic systolic (congestive) heart failure. CONCLUSIONS: 1. Severely dilated left ventricle based on volume index. Normal LV wall thickness. Severely depressed left ventricular systolic function. The Ejection Fraction (Pepper's) is measured at 28 %. Grade I diastolic dysfunction (normal LA pressure). The average global longitudinal strain is abnormal. 2. Resting Segmental Wall Motion Analysis: Total wall motion score is 2.59. There is hypokinesis of the basal anterior to basal anterolateral to basal inferior to basal inferoseptal wall. There is hypokinesis of the mid inferolateral wall. The basal inferolateral wall demonstrates normal motion. The remaining left ventricular segments demonstrate akinesis. 3. Normal right ventricular size. Wire noted in the right heart. 4. The estimated right ventricular systolic pressure is 25 mmHg. ATTESTATION: I have personally reviewed and interpreted this study without fellow or resident. - DISCLAIMER: The study images and the final report will be retained in the patient chart by the Echo Laboratory for the legally required time period. This chart constitutes the legal record of any testing performed. FINDINGS: Left Ventricle: Severely dilated left ventricle based on volume index. Normal LV wall thickness. Severely depressed left ventricular systolic function. The Ejection Fraction (Pepper's) is measured at 28 %. Grade I diastolic dysfunction (normal LA pressure). The average global longitudinal strain is abnormal. The LV global strain is: -8.6 %. Resting Segmental Wall Motion Analysis: Total wall motion score is 2.59. There is hypokinesis of the basal anterior to basal anterolateral to basal inferior to basal inferoseptal wall. There is hypokinesis of the mid inferolateral wall. The basal inferolateral wall demonstrates normal motion. The remaining left ventricular segments demonstrate akinesis. Right Ventricle: Normal right ventricular size. Wire noted in the right heart. Left Atrium: The left atrium is normal in size. Right Atrium: The right atrium is normal in size. Mitral Valve: Normal Mitral Valve Structure. Mild mitral valve regurgitation. The mean transmitral gradient is: 1 mmHg. Aortic Valve: Normal trileaflet aortic valve. Mildly thickened aortic valve leaflets. The mean transaortic gradient is 3 mmHg. The aortic valve area by the continuity equation (using VTI) is 1.95 cm2. Aortic valve dimensionless index is 0.53. Tricuspid Valve: Normal Tricuspid valve structure. Mild tricuspid regurgitation. The estimated right ventricular systolic pressure is 25 mmHg. Pulmonic Valve: Normal Pulmonic Valve Structure. No pulmonic regurgitation. Pericardium: Normal pericardium without pericardial effusion. Aorta: Normal aortic root size at sinuses of Valsalva. Normal aortic root size when indexed. The ascending aorta is normal in size when indexed. PASP: Normal estimated pulmonary artery systolic pressure. Rhythm: Normal Sinus rhythm was seen during the study. MEASUREMENTS: 2D/MM Value Range Doppler Value Range LVIDd 2D 5.43 cm [ 4.20 - 5.80 ] AV Peak Zan 1.1 m/s [ 1.0 - 1.7 ] LVIDs 2D 4.71 cm [ 2.50 - 4.00 ] AV Peak PG 4.84 mmHg IVSd 2D 1.01 cm [ 0.60 - 1.00 ] AV Mean PG 3 mmHg LVPWd 2D 0.93 cm [ 0.60 - 1.00 ] AV VTI 24.2 cm LV Thickness Ratio 1.1 LVOT Peak Zan 0.6 m/s [ 0.7 - 1.1 ] LV FS 2D 13.30 % [ 25.00 - 43.00 ] LVOT Peak PG 1.44 mmHg LV Mass 2D 205.58 g LVOT Mean PG 1 mmHg LV Mass Index 2D 101.77 g/m2 LVOT VTI 12.9 cm RWT 0.34 LVOT Diam 2.16 cm EDV Mod BP 217.20 ml [ 62.00 - 150.00 ] GRETA VTI 1.95 cm2 LV EDV Index 107.52 ml/m2 LVOT/AV VTI 0.53 - Dimensionless index (DVI) ESV Mod BP 157.39 ml [ 21.00 - 61.00 ] MV E Peak Zan 0.5 m/s [ 0.6 - 1.3 ] EF Mod BP 28 % [ 52 - 72 ] MV A Peak Zan 1.0 m/s [ 1.0 - 1.2 ] LV GLS -8.6 % [ -25.0 - -18.0 ] MV E/A 0.5 ratio [ 0.8 - 1.5 ] LA Length 4C 5.12 cm MV Peak Zan 0.6 m/s LA Length 2C 5.35 cm MV Peak PG 1.44 mmHg LA Volume BP 51.65 ml MV Mean PG 1 mmHg LA Volume Index 25.57 ml/m2 [ 16.00 - 34.00 ] MV VTI 8.8 cm MV Annulus 2D 2.36 cm MV Decel Time 128.75 msec [ 104.00 - 258.00 ] RV Base Dimen 2D 3.3 cm [ 2.5 - 4.2 ] MR Peak Zan 5.3 m/s RA Volume 35.55 ml MR Peak PG 112.36 mmHg RA Volume Index 17.60 ml/m2 MV Alias Zan 0 m/s IVC Diam 1.75 cm MR VTI 211.3 cm AoR Diam 2D 3.37 cm [ 3.10 - 3.70 ] MR Flow 0.00 ml/sec Ao Root Index 1.67 cm/m2 [ 1.00 - 2.00 ] MR PISA 0.4 Asc Ao Diam 2D 3.38 cm MR EROA 0.1 cm2 Asc Ao Index 1.67 cm/m2 PISA Regurgitant Volume 21.1 ml RV S` 11.66 cm/sec TR Peak Zan 2.4 m/s [ 1.0 - 2.8 ] TR Peak PG 23.0 mmHg PV Peak Zan 0.8 m/s [ 0.4 - 0.8 ] PV Peak PG 2.56 mmHg Electronically Signed By: Beni Penny MD 08/28/2024 8:22:51 AM CDT Wall Motion Analysis - Resting Procedure Note Beni Penny MD - 08/28/2024 [facility] [place] [address] Transthoracic Echocardiographic Report Patient Name: CORY DOWNEY L : 1965 (59y 1m) Gender: M Study Date: 08/27/2024 08:33:40 AM Ht(Inch): 69 Wt(Lb): 184.97 BSA: 2.02 Wet End Tester: Rachel Rios RDCS Location: [facility] Order Provider:JARED CASTRO Heart Rate: 69 BMI: 27.31 BP: 116 / 69 Ref Provider: JARED CASTRO PROCEDURES: Echocardiographic Report: Transthoracic complete echo with strain imagingand contrast, 2D, spectral and tissue Doppler, color flow Doppler, M-mode. Contrast: Contrast Enhancement was Employed: After initial imaging due tosub- optimal quality related to co-morbidity defined by patient's body habitus and dueto suboptimal image quality with inadequate visualization of at least 2 of 16 LV wallsegments in any view after initial imaging. Perflutren contrast was administered using thevolume necessary to obtain adequate images. 0.9 ml Optison Administered, (2.1 mlwasted). INDICATIONS: I25.5 Ischemic cardiomyopathy and I50.22 Chronic systolic (congestive)heart failure. CONCLUSIONS: 1. Severely dilated left ventricle based on volume index. Normal LV wallthickness. Severely depressed left ventricular systolic function. The EjectionFraction (Pepper's) is measured at 28 %. Grade I diastolic dysfunction (normal LA pressure).The average global longitudinal strain is abnormal. 2. Resting Segmental Wall Motion Analysis: Total wall motion score is2.59. There is hypokinesis of the basal anterior to basal anterolateral to basal inferiorto basal inferoseptal wall. There is hypokinesis of the mid inferolateral wall. Thebasal inferolateral wall demonstrates normal motion. The remaining leftventricular segments demonstrate akinesis. 3. Normal right ventricular size. Wire noted in the right heart. 4. The estimated right ventricular systolic pressure is 25 mmHg. ATTESTATION: I have personally reviewed and interpreted this study without fellow orresident. - DISCLAIMER: The study images and the final report will be retained in the patientchart by the Echo Laboratory for the legally required time period. This chart constitutesthe legal record of any testing performed. FINDINGS: Left Ventricle: Severely dilated left ventricle based on volume index.Normal LV wall thickness. Severely depressed left ventricular systolic function. TheEjection Fraction (Pepper's) is measured at 28 %. Grade I diastolic dysfunction (normal LApressure). The average global longitudinal strain is abnormal. The LV global strain is:-8.6 %. Resting Segmental Wall Motion Analysis: Total wall motion score is 2.59.There is hypokinesis of the basal anterior to basal anterolateral to basal inferiorto basal inferoseptal wall. There is hypokinesis of the mid inferolateral wall. Thebasal inferolateral wall demonstrates normal motion. The remaining leftventricular segments demonstrate akinesis. Right Ventricle: Normal right ventricular size. Wire noted in the rightheart. Left Atrium: The left atrium is normal in size. Right Atrium: The right atrium is normal in size. Mitral Valve: Normal Mitral Valve Structure. Mild mitral valveregurgitation. The mean transmitral gradient is: 1 mmHg. Aortic Valve: Normal trileaflet aortic valve. Mildly thickened aorticvalve leaflets. The mean transaortic gradient is 3 mmHg. The aortic valve area by thecontinuity equation (using VTI) is 1.95 cm2. Aortic valve dimensionless index is 0.53. Tricuspid Valve: Normal Tricuspid valve structure. Mild tricuspidregurgitation. The estimated right ventricular systolic pressure is 25 mmHg. Pulmonic Valve: Normal Pulmonic Valve Structure. No pulmonicregurgitation. Pericardium: Normal pericardium without pericardial effusion. Aorta: Normal aortic root size at sinuses of Valsalva. Normal aortic rootsize when indexed. The ascending aorta is normal in size when indexed. PASP: Normal estimated pulmonary artery systolic pressure. Rhythm: Normal Sinus rhythm was seen during the study. MEASUREMENTS: 2D/MM Value Range DopplerValue Range LVIDd 2D 5.43 cm [ 4.20 - 5.80 ] AV Peak Vel1.1 m/s [ 1.0 - 1.7 ] LVIDs 2D 4.71 cm [ 2.50 - 4.00 ] AV Peak PG4.84 mmHg IVSd 2D 1.01 cm [ 0.60 - 1.00 ] AV Mean PG3 mmHg LVPWd 2D 0.93 cm [ 0.60 - 1.00 ] AV VTI24.2 cm LV Thickness Ratio 1.1 LVOT Peak Vel0.6 m/s [ 0.7 - 1.1 ] LV FS 2D 13.30 % [ 25.00 - 43.00 ] LVOT Peak PG1.44 mmHg LV Mass 2D 205.58 g LVOT Mean PG1 mmHg LV Mass Index 2D 101.77 g/m2 LVOT VTI12.9 cm RWT 0.34 LVOT Diam2.16 cm EDV Mod BP 217.20 ml [ 62.00 - 150.00 ] GRETA VTI1.95 cm2 LV EDV Index 107.52 ml/m2 LVOT/AV VTI0.53 - Dimensionless index (DVI) ESV Mod BP 157.39 ml [ 21.00 - 61.00 ] MV E Peak Vel0.5 m/s [ 0.6 - 1.3 ] EF Mod BP 28 % [ 52 - 72 ] MV A Peak Vel1.0 m/s [ 1.0 - 1.2 ] LV GLS -8.6 % [ -25.0 - -18.0 ] MV E/A0.5 ratio [ 0.8 - 1.5 ] LA Length 4C 5.12 cm MV Peak Vel0.6 m/s LA Length 2C 5.35 cm MV Peak PG1.44 mmHg LA Volume BP 51.65 ml MV Mean PG1 mmHg LA Volume Index 25.57 ml/m2 [ 16.00 - 34.00 ] MV VTI8.8 cm MV Annulus 2D 2.36 cm MV Decel Ddxz433.75 msec [ 104.00 - 258.00 ] RV Base Dimen 2D 3.3 cm [ 2.5 - 4.2 ] MR Peak Vel5.3 m/s RA Volume 35.55 ml MR Peak PG112.36 mmHg RA Volume Index 17.60 ml/m2 MV Alias Vel0 m/s IVC Diam 1.75 cm MR VBX472.3 cm AoR Diam 2D 3.37 cm [ 3.10 - 3.70 ] MR Flow0.00 ml/sec Ao Root Index 1.67 cm/m2 [ 1.00 - 2.00 ] MR PISA0.4 Asc Ao Diam 2D 3.38 cm MR EROA0.1 cm2 Asc Ao Index 1.67 cm/m2 PISARegurgitant Volume 21.1 ml RV S` 11.66 cm/sec TR Peak Zan 2.4 m/s [ 1.0 - 2.8] TR Peak PG 23.0 mmHg PV Peak Zan 0.8 m/s [ 0.4 - 0.8] PV Peak PG 2.56 mmHg Electronically Signed By: Beni Penny MD 08/28/2024 8:22:51 AM CDT [employer] - Resting us Jared Castro MD CV ECHO PROCEDURES Final Result * eGFR (07/28/2024 11:01 AM CDT) eGFR >90 >=60 mL/min/1. 73 [...] was last reviewed 2020. Testing performed by: 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) Anatomical Region Laterality Modality Other Narrative Procedure Note Rakesh Chacon MD - 04/12/2023 10:15 AM CST ENDOSCOPY LAB Patient Name: Cory Downey Procedure Date: 04/12/2023 10:15 AM Admit Type: Outpatient Room: [facility] Date of : 1965 Instrument Name:[id number] Gender: [...] Hgb A1C 7.1(H) 4.0 - 5.6 % [facility] Estimated Average Glucose 157 mg/dL [facility] Comment: The ADA recommends reporting an [...] PhD LAB BLOOD ORDERABLE S Final Result [facility] [place] [address] * (ABNORMAL) Lipid panel (11/28/2021 9:38 PM CDT) Cholesterol 94 30 - 199 mg/dL [facility] Comment: Interpretive Data Ages < or = [...] revised on 2017. Triglycerides 71 <=149 mg/dL [facility] Comment: Interpretive Data Ages < or = [...] revised on 2017. HDL 39(L) >=40 mg/dL [facility] Comment: Interpretive Data Ages < or = [...] on 2017. LDL, calculated 41 <=129 mg/dL [facility] Comment: Interpretive Data Ages < or = [...] revised on 2017. Non-HDL Cholesterol 55 mg/dL [facility] Comment: Interpretive Data Ages < or = [...] revised on 2017. Chol/HDL ratio 2 [facility] Blood 11/28/2021 9:38 PM CDT 11/28/2021 10:19 PM CDT us Johnathon Fabian MD PhD LAB BLOOD ORDERABLE S Final Result MICHA[facility] [place] [address] from Last 3 Months or Most Recently Relevant to Health Maintenance Insurance [facility] IDPA AETNA CARE [place] Advance Directives For more information, please contact: [phone] Documents on File Type Date Recorded Patient Squad Leader Expl anation ADVANCE DIRECTIVE 04/09/2017 12:00 AM [...] 10:38 AM 11/01/2017 3:24 PM Care Teams Rheumatology Nurse Relationship Specialty Start Date End Date Jerri Velez MD [address] [place] [address] PCP - General Family Practice 05/30/23 Carloz Ace MD [address] [address] Medical Oncologist/Dry Heat Cabinet Attendant Medical Oncology 08/09/17 Jonathan Rosario MD [address] [facility] [address] [place] [address] Referring Physician Colon and Rectal Surgery 08/09/17 Catalina Tan MD PhD [address] [facility] [address] [place] [address] Surgeon Transplant 08/09/17 Jared Castro MD [address] [facility] [address] [place] [address] Senior Behavioral Scientist Transplant 08/09/17 Fanta Chauhan, SOPHY [address] [address] Heart Failure Coordinator Sales And Events Coordinator 10/31/17 Jerri Velez MD [address] [facility] [address] [place] [address] Referring Physician Family Practice 12/18/18 Renetta Duenas, SOPHY Registered Nurse Sales And Events Coordinator 08/07/19 Danica Lea Primary Truss Designer 10/30/24
--- OUTSIDE RECORDS SUMMARY | 2024-11-25 10:41 | XMS_ITS | Encounter Summary ---
Author Organization [facility] Address [address] [place] [address] Phone Care Team Providers Care Learning Manager Name Role Phone Jerri Velez MD Primary Care Provider Be Soler MD Primary Care Provider + [phone] Jerri Velez MD Primary Care Provider Be Soler MD Primary Care Provider + [phone] Jerri Velez MD Primary Care Provider Carloz Ace MD Unavailable [phone] Jonathan Rosario MD Unavailable [phone] Catalina Tan MD PhD Unavailable [phone] Derke Mora MD Unavailable [phone] Be Soler MD Primary Care Provider + [phone] Jerri Velez MD Primary Care Provider Fanta Chauhan RN Unavailable [phone] Jerri Velez MD Unavailable + [phone] Renetta Duenas RN Unavailable [phone] Jerri Velez MD Primary Care Provider Danica Lea Unavailable Unavailable Encounter Details Date Type Department Care Team (Late st Contact Info) Description 05/07/2017 Orders Only [facility] Provider, MD [address] [place], [place] [id number] Social History Tobacco Use Types Packs/Day Years [...] on filedocumented in this encounter Care Teams Learning Manager Relationship Specialty Start Date End Date Jerir Velez MD PCP - General 04/04/17 06/08/17 [place] Sol[place] [address] PCP - General 06/09/17 06/12/17 Jerri Velez MD PCP - General 06/13/17 06/19/17 Be Soler MD [address] [address] PCP - General 06/20/17 07/11/17 Jerri Velez MD PCP - General 07/12/17 08/09/17 Be Soler MD [address] [place] [address] PCP - General 08/10/17 10/16/17 Jerri Velez MD PCP - General Family Practice 10/17/17 05/29/23 Jerri Velez MD [address] [place] [address] [address] PCP - General Family Practice 05/30/23 Carloz Ace MD [address] [facility] [address] [place] [address] Medical Oncologist/Cotton Candy Maker Medical Oncology 08/09/17 Jonathan Rosario MD [address] [facility] [address] [place] [address] Referring Physician Colon and Rectal Surgery 08/09/17 Catalina Tan MD PhD [address] [place] [address] Surgeon Transplant 08/09/17 Derek Mora MD [address] [facility] [address] [place] [address] Wood Room Hand Transplant 08/09/17 Fanta Cahuhan, RN [address] [facility] [address] [place] [address] Heart Failure Coordinator Past Due Accounts Clerk 10/31/17 Jerri Velez MD Referring Physician Family Practice 12/18/18 Renetta Duenas, SOPHY Registered Nurse Past Due Accounts Clerk 08/07/19 Danica Lea Primary Manager Hi 10/30/24 documented as of this encounter
--- OUTSIDE RECORDS SUMMARY | 2024-11-25 10:42 | XMS_ITS | Clinical Summary ---
Author Organization [facility] Address [address] [place] [address] Care Team Providers Care Industrial Aerial Installer Name Role Phone Unavailable Primary Care Provider [...] Td Vaccines ( 1 - Tdap) 07/05/1982 Pneumococcal Vaccine: 50+ Ye ars (1 of 1 - PCV) 07/05/2013 Zoster Vaccines (1 of 2) 07/05/2013 COVID-19 Vaccine ( - 2023-2 5 season) 2024 Influenza Adult (#1) 2024 RSV Immunization or 60+ Years (1 - [...]
[2024-11-25 12:55] LABS: Hematocrit 45.0 % (42.0-52.0); Hemoglobin 14.8 g/dL (14.0-18.0); Immature Granulocyte Percent A 0.5 % (0-0.5); Lymphocytes Absolute Auto 1.41 K/mm3 (0.9-3.2); Mean Corpuscular HGB Conc 32.9 g/dl (32-36); Mean Corpuscular Hemoglobin 31.7 pg (26-34); Mean Corpuscular Volume 96.4 fl (80-100); Nucleated Red Blood Cells Absolute Auto 0.000 K/mm3 (0.0-0.012); Nucleated Red Blood Cells Perc 0.0 % (0.0-0.2); Platelet Count Result 292 k/mm3 (150-375); Red Blood Count 4.67 M/mm3 (4.6-6.20); White Blood Count 6.4 K/mm3 (4.5-10.0)
[2024-11-25 13:06] LABS: Alanine Aminotransferase 17 U/L (6-50); Albumin Level 4.2 g/dL (3.5-5.1); Alkaline Phosphatase 88 U/L (38-126); Anion Gap 7 mmol/L (4-12); Aspartate Amino Transferase 58 U/L (17-59); Bilirubin,Total 0.4 mg/dL (0.2-1.3); Blood Urea Nitrogen 16 mg/dL (9-20); Calcium 9.4 mg/dL (8.4-10.2); Carbon Dioxide 27 mmol/L (22-30); Chloride 102 mmol/L (98-107); Cholesterol 102 mg/dL (0-200); Estimated Glomerular Filt Rate > 60; Glucose 139 mg/dL (65-110); HDL Direct 32 mg/dL; Potassium 4.0 mmol/L (3.4-5.0); Sodium 136 mmol/L (137-145); Total Protein 7.0 g/dL (6.3-8.2); Triglycerides 94 mg/dL (<150)
[2024-11-25 13:43] LABS: Prostate Specific Antigen 0.5 ng/mL (< OR = 4.0)
[2024-11-25 13:59] LABS: Thyroid Stimulating Hormone Reflex 1.930 uIU/mL (0.465-4.68)
[2024-11-25 14:02] LABS: MALB Creatinine Ratio 7.9 mg/g (0-30)
[2024-11-25 14:02] LABS: Vitamin B12 862.0 pg/mL (239-931)
[2024-11-25 17:38] LABS: Hemoglobin A1C 6.3 % (<5.7)
== END 2024-11-25 09:30 | disposition home or self-care (01) ==
LOC: ANHGOSHLAB 09:30
PROVIDERS: PCP Family Medicine; Visit Provider Family Medicine
DX: Z00.00 Encounter for general adult medical examination without abnormal findings (principal); E11.9 Type 2 diabetes mellitus without complications; E53.8 Deficiency of other specified B group vitamins; E78.5 Hyperlipidemia, unspecified; I10 Essential (primary) hypertension; E55.9 Vitamin D deficiency, unspecified; Z12.5 Encounter for screening for malignant neoplasm of prostate
CPT/HCPCS: 36415; 80053; 80061; 82043; 82306; 82607; 83036; 84153; 84443; 85025; G0103